=== PATIENT | female | born 1965 | race Caucasian/White ===

== ENCOUNTER → 2016-10-28 | Outpatient (CLI) | payer OTHER ==
[~2016-10-28] MED LIST: BACL10TA2 PO; DEXI30CA PO; DULO1CAP2 PO; GABA-283 PO; GEMF600T PO; HYDR-3716 PO; METF1000 PO; TOPA50TA7 PO; TOPI200T4 PO; TRAZ100T4 PO; TYLE650T25 PO; VITA200015 PO
--- NOTE | 2016-11-18 00:24 | ECWPNPC ---
PATIENT NAME: ADOLFO THORNE : 1965 GENDER: FEMALE VISIT DATE: 10/28/2016 DISCHARGE DATE: 10/28/16 1620 VISIT LOCKED DATE TIME: PHYSICIAN: SLY DAVIS RESOURCE: SLY DAVIS REASON FOR APPOINTMENT 1. LOW BACK HISTORY OF PRESENT ILLNESS HISTORY OF PRESENT ILLNESS: PAIN THE PATIENT DESCRIBES THE PAIN... THE PATIENT DESCRIBES THE PAIN... 51 YEAR OLD FEMALE PATIENT WITH HISTORY OF CHRONIC LOW BACK PAIN. PATIENT DESCRIBES THE PAIN ACHING AND THROBBING WITH A PAIN SCORE OF 4/10. PATIENT RECEIVED A SACROILIAC JOINT BLOCK ON 08/02 AND STATES THAT SHE HAD RELIEF FOR A FEW WEEKS. PATIENT IS CURRENTLY USING CYMBALTA, HYDROCODONE, AND GABAPENTIN WHICH SHE STATES HELPS WITH MOBILITY AND FUNCTIONALITY. PATIENT REPORTS THAT WALKING, STANDING, AND EVERYDAY ACTIVITIES INCREASES THE PAIN IN HER LOWER BACK. DESCRIBES PAIN BURNING PAIN ACROSS LOW BACK WITH RADIATION INTO POSTERIOR THIGHS.R>L. FALL RISK SCREENING: SCREENING :NO FALLS IN THE PAST YEAR CURRENT MEDICATIONS TAKING MULTI FOR HER TABLET ORALLY ONCE DAILY, NOTES: 07/11 TAKING PROBIOTIC CAPSULE ORALLY BID TAKING TYLENOL 650 MG TABLET 1 TABLET NEEDED ORALLY EVERY 6 HRS TAKING CYMBALTA 30 MG CAPSULE DELAYED RELEASE PARTICLES 1 CAPSULE ORALLY ONCE A DAY TAKING ZONISAMIDE 100 MG CAPSULE 1 CAP ORALLY TWICE A DAY TAKING GABAPENTIN 400 MG CAPSULE ORALLY 800MG IN AM/400MG@3P/800MG AT BEDTIME TAKING BACLOFEN 20 MG TABLET 1 TABLET WITH FOOD OR MILK ORALLY THREE TIMES A DAY NEEDED FOR SPASM AND PAIN TAKING CLARITIN 10 MG TABLET 1 TABLET ORALLY ONCE A DAY TAKING DEXILANT 30 MG CAPSULE DELAYED RELEASE 1 CAPSULE ORALLY ONCE A DAY TAKING GEMFIBROZIL 600 MG TABLET TAKE ONE TABLET BY MOUTH TWICE A DAY TAKING ENBREL 25 MG/0.5ML SOLUTION PREFILLED SYRINGE 1 ML SUBCUTANEOUS TWICE WEEKLY TAKING HYDROCODONE-ACETAMINOPHEN 5-325 MG TABLET 1 TABLET NEEDED FOR PAIN ORALLY FOR PAIN EVERY 6 HRS MDD 3 TAKING METFORMIN HCL 1000 MG TABLET 1 TABLET WITH MEALS ORALLY TWICE A DAY TAKING VITAMIN B-12 500 MCG TABLET 1 TAB ORALLY DAILY TAKING VITAMIN C 250 MG TABLET CHEWABLE 2 TAB ORALLY ONCE A DAY TAKING TRAZODONE HCL 100 MG TABLET 1 TAB(S) ORALLY DAILY AT NIGHT TAKING ZOCOR 40 MG TABLET 1 TABLET IN THE EVENING ORALLY ONCE A DAY TAKING CO Q 10 60 MG CAPSULE 1 CAPSULE WITH A MEAL ORALLY ONCE A DAY NOT-TAKING MIRALAX 17 GRAMS SUSPENSION 17 GRAMS ORALLY TWICE A DAY NEEDED, NOTES: NONE NOT-TAKING MILK OF MAGNESIA 400 MG/5ML SUSPENSION 5 ML NEEDED ORALLY PRN, NOTES: NONE NOT-TAKING SULFASALAZINE 500 MG TABLET 1 TABLET ORALLY BID NOT-TAKING PREDNISONE 5 MG TABLET 3 TABLET ORALLY ONCE A DAY NOT-TAKING CALCIUM 600+D 600-400 MG-UNIT TABLET 1 TABLET WITH FOOD ORALLY TWICE DAILY, NOTES: NONE NOT-TAKING VITAMIN D 2000 UNITS TABLET TAKE ONE TABLET BY MOUTH EVERY DAY MEDICATION LIST REVIEWED AND RECONCILED WITH THE PATIENT PAST MEDICAL HISTORY MDD SEVERE ENDOMETRIOSIS, S/P SUPRACERVICAL HYSTERECTOMY, BSO (DR. CHRIS MALIK, [facility]) LEIOMYOMA GERD -EGD/COLONOSCOPY 11/2013 DR HARDY WNL MIGRAINES (DR ARTEAGA) DM2 HTN HYPERLIPIDEMIA CHRONIC NECK/BACK PAIN - NEURO VIT D DEF MORBID OBESITY BLESSING, CPAP (NEURO) FATTY LIVER 05/24 H/O ELEVATED LFTS DIABETIC NEUROPATHY INSOMNIA RHEUMOTOID ARTHRITIS FIBROMYALGIA ALLERGIES ASPIRIN: A CHILD: ALLERGY NAPROXEN: ITCHY: ALLERGY SOCIAL HISTORY GENERAL: TOBACCO USE ARE YOU A:NONSMOKER LEARNING BARRIERS / SPECIAL NEEDS ORIENTED TO PLAN OF CARE: PATIENT, PAIN MANAGEMENT PATIENT, ORIENTED TO PLAN OF CARE: PATIENT, PAIN MANAGEMENT PATIENT. NEW PATIENT PAIN DIARY TODAY'S VISITNOTES FROM 0-10, WHAT LEVEL IS YOUR PAIN TODAY?0 PAIN CLINIC PFS, CLERGY, PUBLIC HEALTH REFERRALS PFS REFERRAL NEEDED?NO CLERGY REFERRAL NEEDED?NO PUBLIC HEALTH REFERRAL NEEDED?NO WAS THE PROVIDER NOTIFIED OF ANY PERTINENT INFO?NO PFS REFERRAL NEEDED?NO CLERGY REFERRAL NEEDED?NO PUBLIC HEALTH REFERRAL NEEDED?NO WAS THE PROVIDER NOTIFIED OF ANY PERTINENT INFO?NO REVIEW OF SYSTEMS CONSTITUTIONAL: ANY CHANGE IN YOUR MEDICAL CONDITION? NO . RECENT ILLNESS DENIES . CHILLS NO . FEVER NO . WEIGHT LOSS DENIES . INFECTION: DO YOU HAVE NEW INFECTIONS? NO . DO YOU HAVE HISTORY OF MRSA? NO . MUSCULOSKELETAL: ANY NEW PATTERNS OF PAIN OR NUMBNESS? NO . GASTROENTEROLOGY: ANY NEW CHANGE IN BOWEL CONTROL? NO . GENITOURINARY: ANY NEW CHANGE IN BLADDER CONTROL? NO . IS THERE A CHANCE YOU COULD BE ? NO . HEMATOLOGY/LYMPH: DO YOU TAKE ANY BLOOD THINNERS? (FOR EXAMPLE- COUMADIN, PLAVIX, AGGRENOX, PLATEL, PRADAXA, OR XARELTO) NO . WHEN WAS YOUR LAST DOSE? DATE: TIME: . NEUROLOGY: HAVE YOU FALLEN IN THE PAST 6 MONTHS? NO . ANY NEW EXTREMITY NUMBNESS OR WEAKNESS? YES ON OCC. HER HANDS JUST DROP. NEUROLOGIST STATES IT IS NOT NEUROLOGICAL IN NATURE . CARDIOLOGY: DO YOU HAVE A PACEMAKER OR DEFIBRILLATOR? NO . CHEST PAIN DENIES . SHORTNESS OF BREATH DENIES . RESPIRATORY: HAVE YOU BEEN SICK IN THE PAST WEEK? NO . FEVER NO . FLU LIKE SYMPTOMS? NO . COUGH NO, DENIES . SHORTNESS OF BREATH DENIES . INTEGUMENTARY: DO YOU HAVE ANY RASHES OR OPEN SORES? NO . ALLERGIC/IMMUNO: ARE YOU ALLERGIC TO SHELLFISH OR IV DYE? NO . ANY NEW ALLERGIES? NO . PSYCHIATRIC: DO YOU HAVE THOUGHTS OF HURTING YOURSELF OR SOMEONE ELSE? NO . ARE YOU ABUSED, NEGLECTED, OR IN AN UNSAFE ENVIRONMENT? NO . ENDOCRINOLOGY: ARE YOU DIABETIC? YES . OTHER: DO YOU NEED ANY PRESCRIPTIONS? NO . IF YES, PLEASE LIST: ____ . ANY NEW PROBLEMS WITH YOUR MEDICATIONS? NO . WHEN DID YOU LAST EAT? ____ . WHEN DID YOU LAST DRINK? ____ . WHAT DID YOU LAST DRINK? ____ . NAME OF PERSON DRIVING YOU HOME? ____ . DO YOU HAVE ANY OTHER QUESTIONS OR CONCERNS NO . REVIEWED BY: PROVIDER: SLY STOUT . VITAL SIGNS WT 211 LBS, HT 64 IN, BMI 36.21 INDEX, BP 144/76 MM HG, HR 97 /MIN, RR 16 /MIN, TEMP 97.9 F, OXYGEN SAT % 98, NA INITIALS AD. EXAMINATION GENERAL EXAMINATION: LUNGS:LUNG SOUNDS ARE CLEAR. HEART:HEART RATE REGULAR. MUSCULOSKELETAL:*, MUSCLE STRENGTH TESTING 5/5 BILATERAL LOWER EXTREMITIES., PALPATION: POSITIVE FOR PAIN OVER L/S SPINE. POSITIVE FOR PAIN OVER L/S PARASPINALS.TENDER OVER SIJ R>L.. MRIL/S [id number]-08-12-17 -REVIEWED. ASSESSMENTS LUMBAR DISC DISPLACEMENT WITHOUT MYELOPATHY - M51.26 (PRIMARY) SACROILIAC JOINT PAIN - M53.3 TREATMENT OTHERS CAUDAL/LUMBAR EPIDURAL NOTES: LUMBAR EPIDURAL INJECTION: YOUR PROCEDURE MATERIAL WAS PRINTED,WHAT IS LUMBAR EPIDURAL INJECTION? MATERIAL WAS PRINTED,WHAT IS LUMBAR EPIDURAL INJECTION? MATERIAL WAS PRINTED. PROCEDURE CODES FA211 ESTABILISHED PATIENT [facility] CHARGE FOLLOW UP 3 WEEKS (REASON: LESI) ELECTRONICALLY SIGNED BY ARGELIA MORELAND ON 11/16/2016 AT 03:24 PM EST DISCLAIMER : THIS IS A VISIT SUMMARY EXTRACTED FROM THE [employer] CHART. IT IS NOT A COPY OF THE [employer] PROGRESS NOTE. KEYONNA
== END ==
LOC: M PAIN 15:20
PROVIDERS: ATTEND Nurse Practitioner Family
DX: Z09 Encounter for follow-up examination after completed treatment for conditions other than malignant neoplasm (principal); G89.29 Other chronic pain; M51.26 Other intervertebral disc displacement, lumbar region; M53.3 Sacrococcygeal disorders, not elsewhere classified; F32.9 Major depressive disorder, single episode, unspecified; K21.9 Gastro-esophageal reflux disease without esophagitis; G43.909 Migraine, unspecified, not intractable, without status migrainosus; E11.40 Type 2 diabetes mellitus with diabetic neuropathy, unspecified; E78.5 Hyperlipidemia, unspecified; E55.9 Vitamin D deficiency, unspecified; E66.9 Obesity, unspecified; Z68.36 Body mass index [BMI] 36.0-36.9, adult; G47.30 Sleep apnea, unspecified; K76.0 Fatty (change of) liver, not elsewhere classified; R06.9 Unspecified abnormalities of breathing; M79.7 Fibromyalgia; Z88.8 Allergy status to other drugs, medicaments and biological substances; Z79.891 Long term (current) use of opiate analgesic; Z79.84 Long term (current) use of oral hypoglycemic drugs; Z79.899 Other long term (current) drug therapy

== ENCOUNTER → 2016-12-09 | Outpatient (CLI) | payer OTHER ==
--- NOTE | 2016-12-10 23:37 | ECWPNPC ---
PATIENT NAME: ADOLFO THORNE : 1965 GENDER: FEMALE VISIT DATE: 12/09/2016 DISCHARGE DATE: 12/09/16 1634 VISIT LOCKED DATE TIME: PHYSICIAN: SLY DAVIS RESOURCE: SLY DAVIS REASON FOR APPOINTMENT 1. POST PROC-BACK/HIP HISTORY OF PRESENT ILLNESS FALL RISK SCREENING: HERE FOR POST PROCEDURE F/U.HAD LEI 11-02-16,HAD >50% IMPROVEMENT IN PAIN FOR 3 WEEKS.CONTINUES WITH SOME BENEFIT TODAY BUT PAST 5 DAYS PAIN HAS BEEN MORE NOTICIBLE.RATING PAIN VAS 4/10.PAIN IS LOCATED LOW BACK WITH RADIATION INTO RIGHT BUTTOCKS.DESCRIBES PAIN INTERMITTENT ACHING.PAIN IS AGGREVATED BY PROLONGED SITTING. SCREENING :NO FALLS IN THE PAST YEAR CURRENT MEDICATIONS TAKING MULTI FOR HER TABLET ORALLY ONCE DAILY, NOTES: 11/02/16 08 TAKING PROBIOTIC CAPSULE ORALLY BID, NOTES: 11/02/16799 TAKING TYLENOL 650 MG TABLET 1 TABLET NEEDED ORALLY EVERY 6 HRS, NOTES: NONE LATELY TAKING CYMBALTA 30 MG CAPSULE DELAYED RELEASE PARTICLES 1 CAPSULE ORALLY ONCE A DAY, NOTES: 11/02/16799 TAKING ZONISAMIDE 100 MG CAPSULE 1 CAP ORALLY TWICE A DAY, NOTES: 11/02/16799 TAKING GABAPENTIN 400 MG CAPSULE ORALLY 800MG IN AM/400MG@3P/800MG AT BEDTIME, NOTES: 11/02/16799 TAKING BACLOFEN 20 MG TABLET 1 TABLET WITH FOOD OR MILK ORALLY THREE TIMES A DAY NEEDED FOR SPASM AND PAIN, NOTES: 11/02/16 08 TAKING ENBREL 25 MG/0.5ML SOLUTION PREFILLED SYRINGE 1 ML SUBCUTANEOUS TWICE WEEKLY, NOTES: 10/27/16 TAKING HYDROCODONE-ACETAMINOPHEN 5-325 MG TABLET 1 TABLET NEEDED FOR PAIN ORALLY FOR PAIN EVERY 6 HRS MDD 3, NOTES: NONE LATELY TAKING METFORMIN HCL 1000 MG TABLET 1 TABLET WITH MEALS ORALLY TWICE A DAY, NOTES: 11/01/162199 TAKING VITAMIN B-12 1000 MCG TABLET 1 TAB ORALLY DAILY, NOTES: 11/02/16 08 TAKING VITAMIN C 250 MG TABLET CHEWABLE 2 TAB ORALLY ONCE A DAY, NOTES: 11/01/16 TAKING TRAZODONE HCL 100 MG TABLET 1 TAB(S) ORALLY DAILY AT NIGHT, NOTES: 11/01/162199 TAKING ZOCOR 40 MG TABLET 1 TABLET IN THE EVENING ORALLY ONCE A DAY, NOTES: 11/01/16 2200 TAKING CO Q 10 60 MG CAPSULE 1 CAPSULE WITH A MEAL ORALLY ONCE A DAY, NOTES: 11/02/16 0800 TAKING VITAMIN E 400 UNIT TABLET 1 TABLET ORALLY ONCE A DAY, NOTES: 11/02/16 0800 TAKING VITAMIN D 2000 UNITS TABLET TAKE ONE TABLET BY MOUTH EVERY DAY , NOTES: 11/02/16 0800 TAKING DEXILANT 30 MG CAPSULE DELAYED RELEASE 1 CAPSULE ORALLY ONCE A DAY TAKING GEMFIBROZIL 600 MG TABLET TAKE ONE TABLET BY MOUTH TWICE A DAY TAKING MAZIN ALLERGY 180 MG TABLET 1 TABLET NEEDED ORALLY ONCE A DAY NOT-TAKING MIRALAX 17 GRAMS SUSPENSION 17 GRAMS ORALLY TWICE A DAY NEEDED, NOTES: NONE NOT-TAKING MILK OF MAGNESIA 400 MG/5ML SUSPENSION 5 ML NEEDED ORALLY PRN, NOTES: NONE NOT-TAKING SULFASALAZINE 500 MG TABLET 1 TABLET ORALLY BID NOT-TAKING PREDNISONE 5 MG TABLET 3 TABLET ORALLY ONCE A DAY NOT-TAKING CALCIUM 600+D 600-400 MG-UNIT TABLET 1 TABLET WITH FOOD ORALLY TWICE DAILY, NOTES: NONE DISCONTINUED CLARITIN 10 MG TABLET 1 TABLET ORALLY ONCE A DAY, NOTES: 11/02/16 0800 MEDICATION LIST REVIEWED AND RECONCILED WITH THE PATIENT PAST MEDICAL HISTORY MDD SEVERE ENDOMETRIOSIS, S/P SUPRACERVICAL HYSTERECTOMY, BSO (DR. CHRIS MALIK, [facility]) LEIOMYOMA GERD -EGD/COLONOSCOPY 11/2013 DR HARDY WNL MIGRAINES (DR ARTEAGA) DM2 HTN HYPERLIPIDEMIA CHRONIC NECK/BACK PAIN - NEURO VIT D DEF MORBID OBESITY BLESSING, CPAP (NEURO) FATTY LIVER 05/24 US H/O ELEVATED LFTS DIABETIC NEUROPATHY INSOMNIA RHEUMOTOID ARTHRITIS FIBROMYALGIA ALLERGIES ASPIRIN: A CHILD: ALLERGY NAPROXEN: ITCHY: ALLERGY SOCIAL HISTORY GENERAL: TOBACCO USE ARE YOU A:NONSMOKER LEARNING BARRIERS / SPECIAL NEEDS ORIENTED TO PLAN OF CARE: PATIENT, PAIN MANAGEMENT PATIENT, ORIENTED TO PLAN OF CARE: PATIENT, PAIN MANAGEMENT PATIENT. NEW PATIENT PAIN DIARY TODAY'S VISITNOTES FROM 0-10, WHAT LEVEL IS YOUR PAIN TODAY?0 PAIN CLINIC PFS, CLERGY, PUBLIC HEALTH REFERRALS PFS REFERRAL NEEDED?NO CLERGY REFERRAL NEEDED?NO PUBLIC HEALTH REFERRAL NEEDED?NO WAS THE PROVIDER NOTIFIED OF ANY PERTINENT INFO?NO PFS REFERRAL NEEDED?NO CLERGY REFERRAL NEEDED?NO PUBLIC HEALTH REFERRAL NEEDED?NO WAS THE PROVIDER NOTIFIED OF ANY PERTINENT INFO?NO REVIEW OF SYSTEMS CONSTITUTIONAL: ANY CHANGE IN YOUR MEDICAL CONDITION? NO . CHILLS NO . FEVER NO . INFECTION: DO YOU HAVE NEW INFECTIONS? NO . DO YOU HAVE HISTORY OF MRSA? NO . MUSCULOSKELETAL: ANY NEW PATTERNS OF PAIN OR NUMBNESS? NO . GASTROENTEROLOGY: ANY NEW CHANGE IN BOWEL CONTROL? NO . GENITOURINARY: ANY NEW CHANGE IN BLADDER CONTROL? NO . IS THERE A CHANCE YOU COULD BE ? NO . HEMATOLOGY/LYMPH: DO YOU TAKE ANY BLOOD THINNERS? (FOR EXAMPLE- COUMADIN, PLAVIX, AGGRENOX, PLATEL, PRADAXA, OR XARELTO) NO . WHEN WAS YOUR LAST DOSE? DATE: TIME: . NEUROLOGY: HAVE YOU FALLEN IN THE PAST 6 MONTHS? YES FELL ON VACATION UNEVEN GROUND. KNEE ABRASIONS/TWISTED BACK . ANY NEW EXTREMITY NUMBNESS OR WEAKNESS? NO . CARDIOLOGY: DO YOU HAVE A PACEMAKER OR DEFIBRILLATOR? NO . RESPIRATORY: HAVE YOU BEEN SICK IN THE PAST WEEK? NO . FEVER NO . FLU LIKE SYMPTOMS? NO . COUGH YES, NON-PRODUCTIVE . INTEGUMENTARY: DO YOU HAVE ANY RASHES OR OPEN SORES? NO . ALLERGIC/IMMUNO: ARE YOU ALLERGIC TO SHELLFISH OR IV DYE? NO . ANY NEW ALLERGIES? NO . PSYCHIATRIC: DO YOU HAVE THOUGHTS OF HURTING YOURSELF OR SOMEONE ELSE? NO . ARE YOU ABUSED, NEGLECTED, OR IN AN UNSAFE ENVIRONMENT? NO . ENDOCRINOLOGY: ARE YOU DIABETIC? YES . OTHER: DO YOU NEED ANY PRESCRIPTIONS? NO . IF YES, PLEASE LIST: ____ . ANY NEW PROBLEMS WITH YOUR MEDICATIONS? NO . WHEN DID YOU LAST EAT? ____ . WHEN DID YOU LAST DRINK? ____ . WHAT DID YOU LAST DRINK? ____ . NAME OF PERSON DRIVING YOU HOME? ____ . DO YOU HAVE ANY OTHER QUESTIONS OR CONCERNS NO . REVIEWED BY: PROVIDER: SLY STOUT . VITAL SIGNS WT 209 LBS, HT 64 IN, BMI 35.87 INDEX, BP 147/84 MM HG, HR 85 /MIN, RR 16 /MIN, TEMP 98.6 F, OXYGEN SAT % 97, NA INITIALS TL 1518, REVIEWED BY: MLF. EXAMINATION GENERAL EXAMINATION: LUNGS:LUNG SOUNDS ARE CLEAR. HEART:HEART RATE REGULAR. MUSCULOSKELETAL:*, MUSCLE STRENGTH TESTING 5/5 BILATERAL LOWER EXTREMITIES., PALPATION: POSITIVE FOR PAIN OVER L/S SPINE. POSITIVE FOR PAIN OVER L/S PARASPINALS.TENDER OVER SIJ R>L.. MRIL/S SQVWL-27-29-17 -REVIEWED. ASSESSMENTS LUMBAR DISC DISPLACEMENT WITHOUT MYELOPATHY - M51.26 (PRIMARY) SACROILIAC JOINT PAIN - M53.3 TREATMENT LUMBAR DISC DISPLACEMENT WITHOUT MYELOPATHY CAUDAL/LUMBAR EPIDURAL NOTES: OPTION FOR EPIDURAL INJECTIONS WERE DISCUSSED WITH THE PATIENT. FDA CONCERNS AND WARNING WERE REVIEWED INCLUDING THE RISK OF BLEEDING, RISK OF INFECTION, RISK OF INCREASED PAIN OR NEURALGIA, AND RISK OF PARALYSIS. PATIENT'S QUESTIONS WERE ANSWERED AND HE/SHE WISHES TO MOVE FORWARD WITH EPIDURAL INJECTION. PROCEDURE CODES FA211 ESTABILISHED PATIENT [facility] FAC[facility] CHARGE DISPOSITION & COMMUNICATION FOLLOW UP 2WK POST (REASON: LESI L4/5-L5/S1) ELECTRONICALLY SIGNED BY ARGELIA MORELAND ON 12/10/2016 AT 03:55 PM EST DISCLAIMER : THIS IS A VISIT SUMMARY EXTRACTED FROM THE [employer] CHART. IT IS NOT A COPY OF THE [employer] PROGRESS NOTE. KEYONNA
== END ==
LOC: M PAIN 15:00
PROVIDERS: ATTEND Nurse Practitioner Family
DX: Z09 Encounter for follow-up examination after completed treatment for conditions other than malignant neoplasm (principal); G89.29 Other chronic pain; M51.26 Other intervertebral disc displacement, lumbar region; M53.3 Sacrococcygeal disorders, not elsewhere classified; F32.9 Major depressive disorder, single episode, unspecified; K21.9 Gastro-esophageal reflux disease without esophagitis; G43.909 Migraine, unspecified, not intractable, without status migrainosus; E11.9 Type 2 diabetes mellitus without complications; I10 Essential (primary) hypertension; E78.5 Hyperlipidemia, unspecified; E55.9 Vitamin D deficiency, unspecified; E66.9 Obesity, unspecified; Z68.35 Body mass index [BMI] 35.0-35.9, adult; G47.30 Sleep apnea, unspecified; K76.0 Fatty (change of) liver, not elsewhere classified; M06.9 Rheumatoid arthritis, unspecified; M79.7 Fibromyalgia; Z88.6 Allergy status to analgesic agent; Z88.8 Allergy status to other drugs, medicaments and biological substances; Z79.891 Long term (current) use of opiate analgesic; Z79.84 Long term (current) use of oral hypoglycemic drugs; Z79.899 Other long term (current) drug therapy

== ENCOUNTER → 2017-02-02 | Outpatient (CLI) | payer OTHER ==
[~2017-02-02] MED LIST changes: +ISOVUE-M 300 61% 15ML VIAL (Q9967) As Ordered ONE; +LIDOCAINE 1% SDV INJ 30 ML VIAL As Ordered ONE; +diazePAM 5 MG TAB As Ordered ONE; +methylPREDNISolone SUSP 40 MG/ML (DEPO-medrol) VIAL (J1030) As Ordered ONE; +oxyCODONE 5MG TAB As Ordered ONE
--- NOTE | 2017-02-02 17:39 | REP ---
FLUOROSCOPIC GUIDED SPINAL INJECTION: The films were reviewed with Dr. Argueta. The patient has a history of chronic low back pain. The portable C-Arm was provided in the OR for Dr. Galindo for fluoroscopic guidance. Three intraoperative fluoroscopic spot films were obtained for needle placement verification for lumbar epidural injection. The films are on the PACs system and are available for review. 7 seconds of fluoroscopy time utilized for this procedure. Reviewed by BEHZAD Farrar 02/03/2017 04:57 PEdited and Signed by Brenann Argueta MD 02/03/2017 05:01 P
--- NOTE | 2017-02-07 00:01 | ECWPNPC ---
PATIENT NAME: ADOLFO THORNE : 1965 GENDER: FEMALE VISIT DATE: 02/02/2017 DISCHARGE DATE: 02/02/17 1238 VISIT LOCKED DATE TIME: PHYSICIAN: ANTONINO LEE RESOURCE: ANTONINO LEE REASON FOR APPOINTMENT 1. LESB HISTORY OF PRESENT ILLNESS HISTORY OF PRESENT ILLNESS: PAIN THE PATIENT DESCRIBES THE PAIN... FALL RISK SCREENING: SCREENING :NO FALLS IN THE PAST YEAR CURRENT MEDICATIONS TAKING MULTI FOR HER TABLET ORALLY ONCE DAILY, NOTES: 01-18-17599 TAKING PROBIOTIC CAPSULE ORALLY BID, NOTES: 01-18-17599 TAKING TYLENOL 650 MG TABLET 1 TABLET NEEDED ORALLY EVERY 6 HRS, NOTES: 01-18-17599 TAKING CYMBALTA 30 MG CAPSULE DELAYED RELEASE PARTICLES 1 CAPSULE ORALLY ONCE A DAY, NOTES: 02-02-17799 TAKING ZONISAMIDE 100 MG CAPSULE 1 CAP ORALLY TWICE A DAY, NOTES: 02-02-17799 TAKING GABAPENTIN 400 MG CAPSULE ORALLY 800MG IN AM/400MG@3P/800MG AT BEDTIME, NOTES: 02-02-17799 TAKING BACLOFEN 20 MG TABLET 1 TABLET WITH FOOD OR MILK ORALLY THREE TIMES A DAY NEEDED FOR SPASM AND PAIN, NOTES: 02-02-17799 TAKING ENBREL 25 MG/0.5ML SOLUTION PREFILLED SYRINGE 1 ML SUBCUTANEOUS TWICE WEEKLY, NOTES: 01-24-17 TAKING HYDROCODONE-ACETAMINOPHEN 5-325 MG TABLET 1 TABLET NEEDED FOR PAIN ORALLY FOR PAIN EVERY 6 HRS MDD 3, NOTES: 01-18-17599 TAKING VITAMIN B-12 1000 MCG TABLET 1 TAB ORALLY DAILY, NOTES: 02-02-17799 TAKING VITAMIN C 250 MG TABLET CHEWABLE 2 TAB ORALLY ONCE A DAY, NOTES: 01-18-17599 TAKING TRAZODONE HCL 100 MG TABLET 1 TAB(S) ORALLY DAILY AT NIGHT, NOTES: 02-01-172229 TAKING ZOCOR 40 MG TABLET 1 TABLET IN THE EVENING ORALLY ONCE A DAY, NOTES: 2229 TAKING CO Q 10 60 MG CAPSULE 1 CAPSULE WITH A MEAL ORALLY ONCE A DAY, NOTES: 02-02-17799 TAKING VITAMIN E 400 UNIT TABLET 1 TABLET ORALLY ONCE A DAY, NOTES: 02-02-17799 TAKING VITAMIN D 2000 UNITS TABLET TAKE ONE TABLET BY MOUTH EVERY DAY , NOTES: 02-02-17799 TAKING DEXILANT 30 MG CAPSULE DELAYED RELEASE 1 CAPSULE ORALLY ONCE A DAY, NOTES: 02-02-17799 TAKING GEMFIBROZIL 600 MG TABLET TAKE ONE TABLET BY MOUTH TWICE A DAY , NOTES: 02-02-17799 TAKING MAZIN ALLERGY 180 MG TABLET 1 TABLET NEEDED ORALLY ONCE A DAY, NOTES: 02-02-17799 TAKING METFORMIN HCL 1000 MG TABLET 1 TABLET WITH MEALS ORALLY TWICE A DAY, NOTES: 02-01-172099 NOT-TAKING MIRALAX 17 GRAMS SUSPENSION 17 GRAMS ORALLY TWICE A DAY NEEDED, NOTES: NONE NOT-TAKING MILK OF MAGNESIA 400 MG/5ML SUSPENSION 5 ML NEEDED ORALLY PRN, NOTES: NONE NOT-TAKING SULFASALAZINE 500 MG TABLET 1 TABLET ORALLY BID NOT-TAKING PREDNISONE 5 MG TABLET 3 TABLET ORALLY ONCE A DAY NOT-TAKING CALCIUM 600+D 600-400 MG-UNIT TABLET 1 TABLET WITH FOOD ORALLY TWICE DAILY, NOTES: NONE MEDICATION LIST REVIEWED AND RECONCILED WITH THE PATIENT PAST MEDICAL HISTORY MDD SEVERE ENDOMETRIOSIS, S/P SUPRACERVICAL HYSTERECTOMY, BSO (DR. CHRIS MALIK, [facility]) LEIOMYOMA GERD -EGD/COLONOSCOPY 11/2013 DR HARDY WNL MIGRAINES (DR ARTEAGA) DM2 HTN HYPERLIPIDEMIA CHRONIC NECK/BACK PAIN - NEURO VIT D DEF MORBID OBESITY BLESSING, CPAP (NEURO) FATTY LIVER 05/24 H/O ELEVATED LFTS DIABETIC NEUROPATHY INSOMNIA RHEUMOTOID ARTHRITIS FIBROMYALGIA ALLERGIES ASPIRIN: A CHILD: ALLERGY NAPROXEN: ITCHY: ALLERGY SOCIAL HISTORY GENERAL: PAIN CLINIC PFS, CLERGY, PUBLIC HEALTH REFERRALS CLERGY REFERRAL NEEDED?NO WAS THE PROVIDER NOTIFIED OF ANY PERTINENT INFO?NO PFS REFERRAL NEEDED?NO PUBLIC HEALTH REFERRAL NEEDED?NO PATIENT: ____. REVIEW OF SYSTEMS CONSTITUTIONAL: ANY CHANGE IN YOUR MEDICAL CONDITION? NO . CHILLS NO . FEVER NO . INFECTION: DO YOU HAVE NEW INFECTIONS? NO . DO YOU HAVE HISTORY OF MRSA? NO . MUSCULOSKELETAL: ANY NEW PATTERNS OF PAIN OR NUMBNESS? NO . GASTROENTEROLOGY: ANY NEW CHANGE IN BOWEL CONTROL? NO . GENITOURINARY: ANY NEW CHANGE IN BLADDER CONTROL? NO . IS THERE A CHANCE YOU COULD BE ? NO . HEMATOLOGY/LYMPH: DO YOU TAKE ANY BLOOD THINNERS? (FOR EXAMPLE- COUMADIN, PLAVIX, AGGRENOX, PLATEL, PRADAXA, OR XARELTO) NO . WHEN WAS YOUR LAST DOSE? DATE: TIME: . NEUROLOGY: HAVE YOU FALLEN IN THE PAST 6 MONTHS? NO . ANY NEW EXTREMITY NUMBNESS OR WEAKNESS? NO . CARDIOLOGY: DO YOU HAVE A PACEMAKER OR DEFIBRILLATOR? NO . RESPIRATORY: HAVE YOU BEEN SICK IN THE PAST WEEK? NO . FEVER NO . FLU LIKE SYMPTOMS? NO . COUGH NO . INTEGUMENTARY: DO YOU HAVE ANY RASHES OR OPEN SORES? NO . ALLERGIC/IMMUNO: ARE YOU ALLERGIC TO SHELLFISH OR IV DYE? NO . ANY NEW ALLERGIES? NO . PSYCHIATRIC: DO YOU HAVE THOUGHTS OF HURTING YOURSELF OR SOMEONE ELSE? NO . ARE YOU ABUSED, NEGLECTED, OR IN AN UNSAFE ENVIRONMENT? NO . ENDOCRINOLOGY: ARE YOU DIABETIC? NO . OTHER: DO YOU NEED ANY PRESCRIPTIONS? NO . IF YES, PLEASE LIST: ____ . ANY NEW PROBLEMS WITH YOUR MEDICATIONS? NO . WHEN DID YOU LAST EAT? ____02-01 17 . WHEN DID YOU LAST DRINK? ____02-02-17 0800 . WHAT DID YOU LAST DRINK? ____A LITTLE WATER WITH MEDS . NAME OF PERSON DRIVING YOU HOME? ____TACO MONTENEGRO . DO YOU HAVE ANY OTHER QUESTIONS OR CONCERNS NO . REVIEWED BY: PROVIDER: . VITAL SIGNS WT 208 LBS, HT 64 IN, BMI 35.70 INDEX, BP 131/58 MM HG, HR 81 /MIN, RR 16 /MIN, TEMP 98.4 F, OXYGEN SAT % 97%, NA INITIALS SC 09:23, REVIEWED BY: KG. ASSESSMENTS INTERVERTEBRAL DISC DISORDERS WITH RADICULOPATHY, LUMBAR REGION - M51.16 (PRIMARY) PROCEDURES PRE PROCEDURE DIAGNOSIS LUMBAR DISC DISORDER WITH RADICULOPATHY POST PROCEDURE DIAGNOSIS LUMBAR DISC DISORDER WITH RADICULOPATHY PROCEDURE LUMBAR EPIDURAL STEROID INJECTION UNDER FLUOROSCOPIC GUIDANCE SURGEON DR. ANTONINO LEE STAMP PRESSER NONE ANESTHESIA LOCAL PRE PROCEDURE NOTE THE PATIENT HAS A HISTORY OF CHRONIC LOW BACK PAIN. I EVALUATE THE PATIENT AND REVIEWED THE CHART. I WENT OVER THE RISKS, ALTERNATIVES, AND BENEFITS ASSOCIATED WITH THIS PROCEDURE. THE PATIENT WOULD LIKE TO PROCEED AND GIVE CONSENT TO PERFORMED THE PROCEDURE. THE PATIENT DENIES UNEXPLAINABLE WEIGHT LOSS, FEVER, CHILLS, OR NEW CHANGES IN URINARY OR BOWEL CONTROL DESCRIPTION OF PROCEDURE THE PATIENT WAS BROUGHT TO THE PROCEDURE ROOM AND PLACED IN THE PRONE POSITION. THE LUMBOSACRAL AREA WAS CLEANED WITH BETADINE SOLUTION AND DRAPED ASEPTICALLY. THE PROCEDURE WAS DONE UNDER STERILE CONDITIONS. I CHECKED LATERALITY AND THE LEVEL WHERE THE PROCEDURE WAS GOING TO BE PERFORMED WITH THE PATIENT AND THE SUPPORTING STAFF AT THE MOMENT OF THE TIME OUT IN THE PROCEDURE ROOM. UNDER FLUOROSCOPIC GUIDANCE, THE TARGET POINT WAS SELECTED AT THE INTERLAMINAR LEVEL OF L4-L5. LIDOCAINE WAS USED TO NUMB THE SKIN AND THE SUBCUTANEOUS TISSUE BELOW IT. EPIDURAL TUOHY NEEDLE, 17-GAUGE, WAS ADVANCED UNDER FLUOROSCOPIC GUIDANCE AND FOLLOWING PATIENT FEEDBACK UNTIL THE EPIDURAL SPACE WAS REACHED, 7 CM DEEP INTO THE SKIN BY THE LOSS OF RESISTANCE TECHNIQUE. ISOVUE M DYE 30%, 0.25 ML, WAS INJECTED SHOWING ADEQUATE SPREAD OF THE DYE. THEN, A SOLUTION OF 3 ML OF NORMAL SALINE WITH DEPO-MEDROL 60 MG WAS INJECTED SLOWLY FOLLOWING PATIENT FEEDBACK. THERE WAS NO EVIDENCE OF BLOOD, PARESTHESIA OR CEREBROSPINAL FLUID DURING THE PROCEDURE. THE PATIENT WAS SENT TO THE RECOVERY ROOM. THE PATIENT WAS MOVING THE EXTREMITIES AND DOING WELL. THERE WAS NO COMPLICATION DURING THE PROCEDURE. FLUOROSCOPY TIME WAS 7 SECONDS POST PROCEDURE NOTE THE PATIENT WILL BE SEEN IN A FOLLOW UP IN THE NEXT FEW WEEKS. INSTRUCTIONS WERE GIVEN, QUESTIONS WERE ANSWERED, AND THE PATIENT EXPRESSED UNDERSTANDING AND AGREES WITH THE PLAN. INSTRUCTIONS WERE GIVEN, QUESTIONS WERE ANSWERED, PATIENT REPORTS UNDERSTANDING AND AGREES WITH THE PLAN. I, ISHA LORA, DOCUMENTED THE ABOVE INFORMATION ACTING A SCRIBE FOR DR. LEE. I HAVE REVIEWED THE ABOVE DOCUMENT, WRITTEN BY ISHA LEWIS AND I VERIFY THAT IT IS ACCURATE DIAGNOSTIC IMAGING [facility] FLUORO GUIDE SPINE INJECTION (PAIN)[id number] PROCEDURE CODES 94000 LUMBAR/SACRAL W/ IMAGING 6045F RADXPS IN END [id number] PXD DISPOSITION & COMMUNICATION FOLLOW UP 3 WEEKS ELECTRONICALLY SIGNED BY ANTONINO LEE MD ON 02/06/2017 AT 12:28 PM EDT DISCLAIMER : THIS IS A VISIT SUMMARY EXTRACTED FROM THE [employer] CHART. IT IS NOT A COPY OF THE [employer] PROGRESS NOTE. MTDD
== END | disposition home or self-care (01) ==
LOC: M PAIN 09:00
PROVIDERS: ATTEND Anesthesiology
DX: G89.29 Other chronic pain (principal); M51.16 Intervertebral disc disorders with radiculopathy, lumbar region; I10 Essential (primary) hypertension; E11.40 Type 2 diabetes mellitus with diabetic neuropathy, unspecified; E78.5 Hyperlipidemia, unspecified; E55.9 Vitamin D deficiency, unspecified; K21.9 Gastro-esophageal reflux disease without esophagitis; G43.909 Migraine, unspecified, not intractable, without status migrainosus; N80.9 Endometriosis, unspecified; G47.00 Insomnia, unspecified; M06.9 Rheumatoid arthritis, unspecified; M79.7 Fibromyalgia; E66.8 Other obesity; D25.9 Leiomyoma of uterus, unspecified; Z79.899 Other long term (current) drug therapy; Z79.84 Long term (current) use of oral hypoglycemic drugs; Z88.5 Allergy status to narcotic agent; Z88.8 Allergy status to other drugs, medicaments and biological substances
CPT/HCPCS: 62323; J1030; Q9967

== ENCOUNTER → 2017-02-10 | Outpatient (REF) | payer OTHER ==
[~2017-02-10] MED LIST changes: -ISOVUE-M 300 61% 15ML VIAL (Q9967) As Ordered ONE; -LIDOCAINE 1% SDV INJ 30 ML VIAL As Ordered ONE; -diazePAM 5 MG TAB As Ordered ONE; -methylPREDNISolone SUSP 40 MG/ML (DEPO-medrol) VIAL (J1030) As Ordered ONE; -oxyCODONE 5MG TAB As Ordered ONE
== END ==
LOC: M SFHCADAM 14:18
PROVIDERS: ATTEND Physician Assistant Medical
DX: E11.9 Type 2 diabetes mellitus without complications (principal)

== ENCOUNTER → 2017-03-09 | Outpatient (CLI) | payer OTHER ==
--- NOTE | 2017-03-30 00:52 | ECWPNPC ---
PATIENT NAME: ADOLFO THORNE : 1965 GENDER: FEMALE VISIT DATE: 03/09/2017 DISCHARGE DATE: 03/09/17 1502 VISIT LOCKED DATE TIME: PHYSICIAN: SLY DAVIS RESOURCE: LSY DAVIS REASON FOR APPOINTMENT 1. BACK HISTORY OF PRESENT ILLNESS HISTORY OF PRESENT ILLNESS: PAIN THE PATIENT DESCRIBES THE PAIN... FALL RISK SCREENING: HERE FOR POST PROCEDURE F/U.HAD LESI 02-02,HAD >50% IMPROVEMENT IN PAIN FOR 3 WEEKS.CONTINUES WITH SOME BENEFIT TODAY BUT PAST 5 DAYS PAIN HAS BEEN MORE NOTICIBLE ECSPECIALLY IN HIPS.RATING PAIN VAS 4/10.PAIN IS LOCATED LOW BACK WITH RADIATION INTO RIGHT BUTTOCKS.DESCRIBES PAIN INTERMITTENT ACHING.PAIN IS AGGREVATED BY PROLONGED SITTING. SCREENING :NO FALLS IN THE PAST YEAR :NO FALLS IN THE PAST YEAR CURRENT MEDICATIONS TAKING MULTI FOR HER TABLET ORALLY ONCE DAILY, NOTES: 01-18-17599 TAKING TYLENOL 650 MG TABLET 1 TABLET NEEDED ORALLY EVERY 6 HRS, NOTES: 01-18-17599 TAKING CYMBALTA 30 MG CAPSULE DELAYED RELEASE PARTICLES 1 CAPSULE ORALLY ONCE A DAY, NOTES: 02-02-17799 TAKING ZONISAMIDE 100 MG CAPSULE 1 CAP ORALLY TWICE A DAY, NOTES: 02-02-17799 TAKING GABAPENTIN 400 MG CAPSULE ORALLY 800MG IN AM/400MG@3P/800MG AT BEDTIME, NOTES: 02-02-17799 TAKING BACLOFEN 20 MG TABLET 1 TABLET WITH FOOD OR MILK ORALLY THREE TIMES A DAY NEEDED FOR SPASM AND PAIN, NOTES: 02-02-17799 TAKING ENBREL 25 MG/0.5ML SOLUTION PREFILLED SYRINGE 1 ML SUBCUTANEOUS TWICE WEEKLY, NOTES: 01-24-17 TAKING HYDROCODONE-ACETAMINOPHEN 5-325 MG TABLET 1 TABLET NEEDED FOR PAIN ORALLY FOR PAIN EVERY 6 HRS MDD 3, NOTES: 01-18-17599 TAKING VITAMIN B-12 1000 MCG TABLET 1 TAB ORALLY DAILY, NOTES: 02-02-17799 TAKING VITAMIN C 250 MG TABLET CHEWABLE 2 TAB ORALLY ONCE A DAY, NOTES: 01-18-17599 TAKING TRAZODONE HCL 100 MG TABLET 1 TAB(S) ORALLY DAILY AT NIGHT, NOTES: 02-01-172229 TAKING ZOCOR 40 MG TABLET 1 TABLET IN THE EVENING ORALLY ONCE A DAY, NOTES: 2229 TAKING CO Q 10 60 MG CAPSULE 1 CAPSULE WITH A MEAL ORALLY ONCE A DAY, NOTES: 02-02-17799 TAKING VITAMIN E 400 UNIT TABLET 1 TABLET ORALLY ONCE A DAY, NOTES: 02-02-17799 TAKING VITAMIN D 2000 UNITS TABLET TAKE ONE TABLET BY MOUTH EVERY DAY , NOTES: 02-02-17799 TAKING GEMFIBROZIL 600 MG TABLET TAKE ONE TABLET BY MOUTH TWICE A DAY , NOTES: 02-02-17799 TAKING METFORMIN HCL 1000 MG TABLET 1 TABLET WITH MEALS ORALLY TWICE A DAY, NOTES: 02-01-172099 TAKING NEXIUM 40 MG CAPSULE DELAYED RELEASE 1 CAPS, AUDRA ORALLY TWICE DAILY TAKING CETIRIZINE HCL 10 MG TABLET 1 TABLET ORALLY ONCE A DAY TAKING FLUTICASONE PROPIONATE 50 MCG/ACT SUSPENSION 1 SPRAY IN EACH NOSTRIL NASALLY TWICE DAILY TAKING SINGULAIR 10 MG TABLET 1 TABLET IN THE EVENING ORALLY ONCE A DAY NOT-TAKING PROBIOTIC CAPSULE ORALLY BID, NOTES: 01-18-17599 NOT-TAKING AUGMENTIN 500-125 MG TABLET 1 TABLET ORALLY THREE TIMES DAILY NOT-TAKING CALCIUM 600+D 600-400 MG-UNIT TABLET 1 TABLET WITH FOOD ORALLY TWICE DAILY, NOTES: NONE MEDICATION LIST REVIEWED AND RECONCILED WITH THE PATIENT PAST MEDICAL HISTORY MDD SEVERE ENDOMETRIOSIS, S/P SUPRACERVICAL HYSTERECTOMY, BSO (DR. CHRIS MALIK, [facility]) LEIOMYOMA GERD -EGD/COLONOSCOPY 11/2013 DR HARDY WNL MIGRAINES (DR ARTEAGA) DM2 HTN HYPERLIPIDEMIA CHRONIC NECK/BACK PAIN - NEURO VIT D DEF MORBID OBESITY BLESSING, CPAP (NEURO) FATTY LIVER 05/24 H/O ELEVATED LFTS DIABETIC NEUROPATHY INSOMNIA RHEUMOTOID ARTHRITIS FIBROMYALGIA ALLERGIES ASPIRIN: A CHILD: ALLERGY NAPROXEN: ITCHY: ALLERGY SURGICAL HISTORY C SECTION X 3 HYSTERECTOMY CHOLECYSTECTOMY APPENDECTOMY HOSPITALIZATION/MAJOR DIAGNOSTIC PROCEDURE SURGERIES REVIEW OF SYSTEMS CONSTITUTIONAL: ANY CHANGE IN YOUR MEDICAL CONDITION? NO . CHILLS NO . FEVER NO . INFECTION: DO YOU HAVE NEW INFECTIONS? YES, URI TX'D W ABX&NBSP;. DO YOU HAVE HISTORY OF MRSA? &NBSP;&NBSP; NO&NBSP;. MUSCULOSKELETAL: ANY NEW PATTERNS OF PAIN OR NUMBNESS? YES, PT STATES SHE HAD LESB ON , PRE PROCEDURAL, PT STATES PAIN WAS 5/10, POST PROCEDURE PAIN WAS 4/10, . GASTROENTEROLOGY: ANY NEW CHANGE IN BOWEL CONTROL? NO . GENITOURINARY: ANY NEW CHANGE IN BLADDER CONTROL? NO . IS THERE A CHANCE YOU COULD BE ? NO . HEMATOLOGY/LYMPH: DO YOU TAKE ANY BLOOD THINNERS? (FOR EXAMPLE- COUMADIN, PLAVIX, AGGRENOX, PLATEL, PRADAXA, OR XARELTO) NO . WHEN WAS YOUR LAST DOSE? DATE: TIME: . NEUROLOGY: HAVE YOU FALLEN IN THE PAST 6 MONTHS? YES, PT STATES SHE FELL DOWN 2 STEPS, FALLING ON CARPET FLOOR. PT STATES LEFT FOOT AFFECTED WITH BRUISING TO DIGITS. PT STATES SHE DID NOT SEEK MEDICAL ATTENTION . ANY NEW EXTREMITY NUMBNESS OR WEAKNESS? NO . CARDIOLOGY: DO YOU HAVE A PACEMAKER OR DEFIBRILLATOR? NO . RESPIRATORY: HAVE YOU BEEN SICK IN THE PAST WEEK? NO . FEVER NO . FLU LIKE SYMPTOMS? NO . COUGH NO . INTEGUMENTARY: DO YOU HAVE ANY RASHES OR OPEN SORES? NO . ALLERGIC/IMMUNO: ARE YOU ALLERGIC TO SHELLFISH OR IV DYE? NO . ANY NEW ALLERGIES? NO . PSYCHIATRIC: DO YOU HAVE THOUGHTS OF HURTING YOURSELF OR SOMEONE ELSE? NO . ARE YOU ABUSED, NEGLECTED, OR IN AN UNSAFE ENVIRONMENT? NO . ENDOCRINOLOGY: ARE YOU DIABETIC? YES . OTHER: DO YOU NEED ANY PRESCRIPTIONS? NO, PT TO DISC USS WITH Cabrera DAVIS . IF YES, PLEASE LIST: ____ . ANY NEW PROBLEMS WITH YOUR MEDICATIONS? NO . WHEN DID YOU LAST EAT? ____ . WHEN DID YOU LAST DRINK? ____ . WHAT DID YOU LAST DRINK? ____ . NAME OF PERSON DRIVING YOU HOME? ____ . DO YOU HAVE ANY OTHER QUESTIONS OR CONCERNS NO . REVIEWED BY: PROVIDER: SLY STOUT . VITAL SIGNS WT 207.0 LBS, HT 64 IN, BMI 35.53 INDEX, BP 128/66 MM HG, HR 91 /MIN, RR 16 /MIN, TEMP 98.8 F, OXYGEN SAT % 98%, SAFE IN ENV? (Y/N) Y, NA INITIALS TL 1347, REVIEWED BY: EM. EXAMINATION GENERAL EXAMINATION: LUNGS:LUNG SOUNDS ARE CLEAR. HEART:HEART RATE REGULAR. MUSCULOSKELETAL:TRIGGER POINTS: NOTED OVER R>L PARASPINAL REGION.. MRIL/S [id number] -REVIEWED. ASSESSMENTS LUMBAR DISC DISPLACEMENT WITHOUT MYELOPATHY - M51.26 (PRIMARY) SACROILIAC JOINT PAIN - M53.3 MYALGIA - M79.1 TREATMENT LUMBAR DISC DISPLACEMENT WITHOUT MYELOPATHY NOTES: REQUEST BILATERAL LUMBAR TPI R>LSTOP ENBREL -DO NOT TAKE TUESDAY AND TUESDAY DOSE AND SCHEDULE PROCEDURE ON A TUESDAY. RESUME ENBREL FOLLOWING TUESDAY. PROCEDURE CODES FA211 ESTABILISHED PATIENT [facility] CHARGE DISPOSITION & COMMUNICATION FOLLOW UP SCHEDULE AFTER HER VACATION IN [place] (REASON: REQUEST BILATERAL LUMBAR TPI R>L) ELECTRONICALLY SIGNED BY ARGELIA MORELAND ON 03/29/2017 AT 02:24 PM EDT DISCLAIMER : THIS IS A VISIT SUMMARY EXTRACTED FROM THE [employer] CHART. IT IS NOT A COPY OF THE [employer] PROGRESS NOTE. KEYONNA
== END | disposition home or self-care (01) ==
LOC: M PAIN 13:40
PROVIDERS: ATTEND Nurse Practitioner Family
DX: G89.29 Other chronic pain (principal); M51.26 Other intervertebral disc displacement, lumbar region; M53.3 Sacrococcygeal disorders, not elsewhere classified; M79.1 Myalgia; N80.9 Endometriosis, unspecified; K21.9 Gastro-esophageal reflux disease without esophagitis; E11.9 Type 2 diabetes mellitus without complications; I10 Essential (primary) hypertension; E78.5 Hyperlipidemia, unspecified; E55.9 Vitamin D deficiency, unspecified; G47.33 Obstructive sleep apnea (adult) (pediatric); M06.9 Rheumatoid arthritis, unspecified; F33.9 Major depressive disorder, recurrent, unspecified; Z79.899 Other long term (current) drug therapy; Z79.84 Long term (current) use of oral hypoglycemic drugs; Z88.8 Allergy status to other drugs, medicaments and biological substances

== ENCOUNTER → 2017-03-17 | Outpatient (REF) | payer OTHER ==
[2017-03-17 13:00] LABS: BASO % 0.4 % (0.0-1.0); EOS # 0.2 K/mm3 (0.0-0.50); LARGE UNSTAINED CELL # 0.1 K/mm3 (0.0-0.4); LARGE UNSTAINED CELL % 2.1 % (0.0-4.0); LYMPH # 2.8 K/mm3 (1.5-4.5); LYMPH % 40.8 % (24.0-44.0); MEAN CORPUSCULAR HEMOGLOBIN 27.4 pg (27.0-33.0); MEAN CORPUSCULAR HGB CONC 32.7 g/dl (32.0-36.5); MEAN CORPUSCULAR VOLUME 83.9 fl (80.0-96.0); MONO # 0.4 K/mm3 (0.0-0.8); MONO % 5.7 % (0.0-5.0); NEUTROPHILS # 3.1 K/mm3 (1.8-7.7); PLATELET COUNT, AUTOMATED 294 k/mm3 (150-450); RED CELL DISTRIBUTION WIDTH 14.3 % (11.5-14.5); WHITE BLOOD COUNT 6.5 K/mm3 (4.0-10.0)
[2017-03-17 13:17] LABS: BLOOD UREA NITROGEN 10 MG/DL (7-18); CREATININE FOR GFR 0.73 MG/DL (0.55-1.02); GLOMERULAR FILTRATION RATE > 60.0 (>51); GLUCOSE, FASTING 106 MG/DL (70-105)
[2017-03-17 13:18] LABS: ALT/SGPT 40 U/L (12-78); ANION GAP 4 MEQ/L (8-16); AST/SGOT 28 U/L (15-37); CALCIUM LEVEL 9.5 MG/DL (8.5-10.1); CARBON DIOXIDE LEVEL 30 MEQ/L (21-32); CHLORIDE LEVEL 108 MEQ/L (98-107); POTASSIUM SERUM 4.3 MEQ/L (3.5-5.1); SODIUM LEVEL 142 MEQ/L (136-145)
[2017-03-17 13:19] LABS: ALBUMIN 4.2 GM/DL (3.2-5.2); ALBUMIN/GLOBULIN RATIO 1.27 (1.00-1.93); ALKALINE PHOSPHATASE 88 U/L (45-117); BILIRUBIN,TOTAL 0.3 MG/DL (0.2-1.0); PERCENT SATURATION 12.4 % (13.2-37.4); TOTAL IRON BINDING CAPACITY 510 UG/DL (250-450); TOTAL PROTEIN 7.5 GM/DL (6.4-8.2)
[2017-03-17 13:36] LABS: FERRITIN 12 NG/ML (8-252)
== END ==
LOC: M SFHCADAM 08:08
PROVIDERS: ATTEND Physician Assistant Medical
DX: E11.9 Type 2 diabetes mellitus without complications (principal); K21.9 Gastro-esophageal reflux disease without esophagitis; K75.81 Nonalcoholic steatohepatitis (NASH); D50.8 Other iron deficiency anemias; E55.9 Vitamin D deficiency, unspecified

== ENCOUNTER → 2017-04-01 | Outpatient (CLI) | payer OTHER ==
[~2017-04-01] MED LIST changes: +BUPIVACAINE HCL 0.25% 10 ML VIAL As Ordered ONE; +BUPIVACAINE HCL 0.25% 30 ML VIAL As Ordered ONE; -DEXI30CA PO; +DEXI30CA2 PO; -METF1000 PO; +METF10004 PO; -TOPA50TA7 PO; +TOPA50TA8 PO; -TOPI200T4 PO; +TOPI200T7 PO; +TRAZ-136 PO; -TRAZ100T4 PO; +TRIAMCINOLONE ACETONIDE SUSP 40 MG/ML VIAL (J3301) As Ordered ONE; +diazePAM 5 MG TAB As Ordered ONE; +oxyCODONE 5MG TAB As Ordered ONE
--- NOTE | 2017-04-12 23:36 | ECWPNPC ---
PATIENT NAME: ADOLFO THORNE : 1965 GENDER: FEMALE VISIT DATE: 04/01/2017 DISCHARGE DATE: 04/01/171655 VISIT LOCKED DATE TIME: PHYSICIAN: ANTONINO LEE RESOURCE: ANTONINO LEE REASON FOR APPOINTMENT 1. CARLOS MANUEL LUMBAR TPI HISTORY OF PRESENT ILLNESS HISTORY OF PRESENT ILLNESS: PAIN THE PATIENT DESCRIBES THE PAIN... FALL RISK SCREENING: SCREENING :NO FALLS IN THE PAST YEAR CURRENT MEDICATIONS TAKING TYLENOL 650 MG TABLET 1 TABLET NEEDED ORALLY EVERY 6 HRS, NOTES: LONG TIME AGO TAKING CYMBALTA 30 MG CAPSULE DELAYED RELEASE PARTICLES 1 CAPSULE ORALLY ONCE A DAY, NOTES: 04/01/17799 TAKING ZONISAMIDE 100 MG CAPSULE 1 CAP ORALLY TWICE A DAY, NOTES: 04/01/17799 TAKING GABAPENTIN 400 MG CAPSULE ORALLY 800MG IN AM/400MG@3P/800MG AT BEDTIME, NOTES: 04/01/17799 TAKING BACLOFEN 20 MG TABLET 1 TABLET WITH FOOD OR MILK ORALLY THREE TIMES A DAY NEEDED FOR SPASM AND PAIN, NOTES: 04/01/17799 TAKING ENBREL 25 MG/0.5ML SOLUTION PREFILLED SYRINGE 1 ML SUBCUTANEOUS TWICE WEEKLY, NOTES: 03/20/17 08 TAKING HYDROCODONE-ACETAMINOPHEN 5-325 MG TABLET 1 TABLET NEEDED FOR PAIN ORALLY FOR PAIN EVERY 6 HRS MDD 3, NOTES: 03/23/17 1400 TAKING VITAMIN B-12 1000 MCG TABLET 1 TAB ORALLY DAILY, NOTES: 04/01/17799 TAKING VITAMIN C 250 MG TABLET CHEWABLE 2 TAB ORALLY ONCE A DAY, NOTES: 03/14/17 08 TAKING TRAZODONE HCL 100 MG TABLET 1 TAB(S) ORALLY DAILY AT NIGHT, NOTES: 03/31/17 2300 TAKING ZOCOR 40 MG TABLET 1 TABLET IN THE EVENING ORALLY ONCE A DAY, NOTES: 03/31/17 2300 TAKING CO Q 10 60 MG CAPSULE 1 CAPSULE WITH A MEAL ORALLY ONCE A DAY, NOTES: 04/01/17799 TAKING VITAMIN E 400 UNIT TABLET 1 TABLET ORALLY ONCE A DAY, NOTES: 04/01/17799 TAKING VITAMIN D 2000 UNITS TABLET TAKE ONE TABLET BY MOUTH EVERY DAY , NOTES: 04/01/17799 TAKING GEMFIBROZIL 600 MG TABLET TAKE ONE TABLET BY MOUTH TWICE A DAY , NOTES: 6/22/17 0800 TAKING METFORMIN HCL 1000 MG TABLET 1 TABLET WITH MEALS ORALLY TWICE A DAY, NOTES: 04/01/17 1800 TAKING NEXIUM 40 MG CAPSULE DELAYED RELEASE 1 CAPS, AUDRA ORALLY TWICE DAILY, NOTES: 03/31/17 2300 TAKING CETIRIZINE HCL 10 MG TABLET 1 TABLET ORALLY ONCE A DAY, NOTES: 03/31/17 230 TAKING FLUTICASONE PROPIONATE 50 MCG/ACT SUSPENSION 1 SPRAY IN EACH NOSTRIL NASALLY TWICE DAILY, NOTES: 03/31/172199 TAKING SINGULAIR 10 MG TABLET 1 TABLET IN THE EVENING ORALLY ONCE A DAY, NOTES: 04/01/17 08 TAKING FERROUS SULFATE 325 (65 FE) MG TABLET DELAYED RELEASE 1 TABLET ORALLY ONCE A DAY, NOTES: 04/01/17 08 TAKING ONE TOUCH ULTRA BLUE STRIPS DIRECTED SUBCUTANEOUSLY DAILY, DX E11.9 TAKING BIOTIN 5000 MCG CAPSULE 1 CAPSULE ORALLY ONCE A DAY, NOTES: 04/01/17 08 TAKING HYDROXYCHLOROQUINE SULFATE 200 MG TABLET 1 TABLET WITH FOOD OR MILK ORALLY BID, NOTES: 03/31/172199 NOT-TAKING MULTI FOR HER TABLET ORALLY ONCE DAILY NOT-TAKING PROBIOTIC CAPSULE ORALLY BID, NOTES: 01-18-17 06 NOT-TAKING AUGMENTIN 500-125 MG TABLET 1 TABLET ORALLY THREE TIMES DAILY NOT-TAKING CALCIUM 600+D 600-400 MG-UNIT TABLET 1 TABLET WITH FOOD ORALLY TWICE DAILY, NOTES: NONE MEDICATION LIST REVIEWED AND RECONCILED WITH THE PATIENT PAST MEDICAL HISTORY MDD SEVERE ENDOMETRIOSIS, S/P SUPRACERVICAL HYSTERECTOMY, BSO (DR. CHRIS MALIK, [facility]) LEIOMYOMA GERD -EGD/COLONOSCOPY 11/2013 DR HARDY WNL MIGRAINES (DR ARTEAGA) DM2 HTN HYPERLIPIDEMIA CHRONIC NECK/BACK PAIN - NEURO VIT D DEF MORBID OBESITY BLESSING, CPAP (NEURO) FATTY LIVER 05/24 H/O ELEVATED LFTS DIABETIC NEUROPATHY INSOMNIA RHEUMOTOID ARTHRITIS FIBROMYALGIA ALLERGIES ASPIRIN: A CHILD: ALLERGY NAPROXEN: ITCHY: ALLERGY SURGICAL HISTORY C SECTION X 3 HYSTERECTOMY CHOLECYSTECTOMY APPENDECTOMY HOSPITALIZATION/MAJOR DIAGNOSTIC PROCEDURE SURGERIES REVIEW OF SYSTEMS REVIEWED BY: PROVIDER: . CONSTITUTIONAL: ANY CHANGE IN YOUR MEDICAL CONDITION? NO . CHILLS NO . FEVER NO . INFECTION: DO YOU HAVE NEW INFECTIONS? NO . DO YOU HAVE HISTORY OF MRSA? NO . MUSCULOSKELETAL: ANY NEW PATTERNS OF PAIN OR NUMBNESS? NO . GASTROENTEROLOGY: ANY NEW CHANGE IN BOWEL CONTROL? NO . GENITOURINARY: ANY NEW CHANGE IN BLADDER CONTROL? NO . IS THERE A CHANCE YOU COULD BE ? NO . HEMATOLOGY/LYMPH: DO YOU TAKE ANY BLOOD THINNERS? (FOR EXAMPLE- COUMADIN, PLAVIX, AGGRENOX, PLATEL, PRADAXA, OR XARELTO) NO . WHEN WAS YOUR LAST DOSE? DATE: TIME: . NEUROLOGY: HAVE YOU FALLEN IN THE PAST 6 MONTHS? NO . ANY NEW EXTREMITY NUMBNESS OR WEAKNESS? NO . CARDIOLOGY: DO YOU HAVE A PACEMAKER OR DEFIBRILLATOR? NO . RESPIRATORY: HAVE YOU BEEN SICK IN THE PAST WEEK? NO . FEVER NO . FLU LIKE SYMPTOMS? NO . COUGH NO . INTEGUMENTARY: DO YOU HAVE ANY RASHES OR OPEN SORES? NO . ALLERGIC/IMMUNO: ARE YOU ALLERGIC TO SHELLFISH OR IV DYE? NO . ANY NEW ALLERGIES? NO . PSYCHIATRIC: DO YOU HAVE THOUGHTS OF HURTING YOURSELF OR SOMEONE ELSE? NO . ARE YOU ABUSED, NEGLECTED, OR IN AN UNSAFE ENVIRONMENT? NO . ENDOCRINOLOGY: ARE YOU DIABETIC? YES . OTHER: DO YOU NEED ANY PRESCRIPTIONS? NO . IF YES, PLEASE LIST: ____ . ANY NEW PROBLEMS WITH YOUR MEDICATIONS? NO . WHEN DID YOU LAST EAT? 03/31/17 1700 . WHEN DID YOU LAST DRINK? 04/01/17 0800 . WHAT DID YOU LAST DRINK? WATER . NAME OF PERSON DRIVING YOU HOME? TACO MONTENEGRO . DO YOU HAVE ANY OTHER QUESTIONS OR CONCERNS NO . VITAL SIGNS WT 206 LBS, HT 64 IN, BMI 35.36 INDEX, BP 160/98 MM HG, HR 79 /MIN, RR 16 /MIN, TEMP 99.4 F, OXYGEN SAT % 98, SAFE IN ENV? (Y/N) Y, REVIEWED BY: EM. ASSESSMENTS MYALGIA - M79.1 (PRIMARY) PROCEDURES PN TRIGGER POINT INJECTION WITH STEROIDS PRE PROCEDURE DIAGNOSIS 1. MYALGIA 2. PAIN AT BILATERAL SHOULDER AREA AND BILATERAL LOWER BACK AREA POST PROCEDURE DIAGNOSIS 1. MYALGIA 2. PAIN AT BILATERAL SHOULDER LEVEL AND BILATERAL LOWER BACK AREA PROCEDURE TRIGGER POINT INJECTION AT BILATERAL SHOULDER AREA AND BILATERAL NECK AREA SURGEON DR. ANTONINO LEE CONTACT CENTRE SUPERVISOR NONE ANESTHESIA LOCAL PRE PROCEDURE NOTE THE PATIENT HAS A HISTORY OF CHRONIC PAIN AT THE RIGHT AND LEFT SHOULDER AREA AND RIGHT AND LEFT LOWER BACK AREA. I EVALUATE THE PATIENT AND REVIEWED THE CHART. THERE IS EVIDENCE OF BANDS OF TISSUE WITH RESTRICTION OF MOVEMENT AND PRESENCE OF TRIGGER POINT AT THE AFFECTED AREA. I WENT OVER THE RISKS, ALTERNATIVES, AND BENEFITS ASSOCIATED WITH THIS PROCEDURE. THE PATIENT WOULD LIKE TO PROCEED AND GIVE CONSENT TO PERFORMED THE PROCEDURE. THE PATIENT DENIES UNEXPLAINABLE WEIGHT LOSS, FEVER, CHILLS, OR NEW CHANGES IN URINARY OR BOWEL CONTROL DESCRIPTION OF PROCEDURE THE PATIENT WAS BROUGHT TO THE PROCEDURE ROOM AND PLACED IN THE SITTING POSITION. THE AREA WAS CLEANED WITH ALCOHOL. THE PROCEDURE WAS DONE USING ASEPTIC STERILE TECHNIQUE. I CHECKED LATERALITY AND THE LEVEL WHERE THE PROCEDURE WAS GOING TO BE PERFORMED WITH THE PATIENT AND THE SUPPORTING STAFF AT THE MOMENT OF THE TIME OUT IN THE PROCEDURE ROOM. USING A 25-GAUGE NEEDLE, TRIGGER POINTS WERE INJECTED AT THE RIGHT AND LEFT SHOULDER AREA AND RIGHT AND LEFT LOWER BACK AREA WITH A TOTAL OF 40 ML OF BUPIVACAINE 0.25% AND KENALOG 40 MG. THERE WAS NO EVIDENCE OF BLOOD, PARESTHESIA OR CEREBROSPINAL FLUID DURING THE PROCEDURE. THE PATIENT WAS SENT TO THE RECOVERY ROOM. THE PATIENT WAS MOVING THE EXTREMITIES AND DOING WELL. THERE WAS NO COMPLICATION DURING THE PROCEDURE POST PROCEDURE NOTE THE PATIENT WILL BE SEEN IN A FOLLOW UP IN THE NEXT FEW WEEKS. INSTRUCTIONS WERE GIVEN, QUESTIONS WERE ANSWERED, AND THE PATIENT EXPRESSED UNDERSTANDING AND AGREES WITH THE PLAN. I, ISHA LORA, DOCUMENTED THE ABOVE INFORMATION ACTING A SCRIBE FOR DR. LEE. I HAVE REVIEWED THE ABOVE DOCUMENT, WRITTEN BY ISHA LEWIS AND I VERIFY THAT IT IS ACCURATE PROCEDURE CODES 18714 INJECT TRIGGER POINTS 3/> DISPOSITION & COMMUNICATION FOLLOW UP 3 WEEKS ELECTRONICALLY SIGNED BY ANTONINO LEE MD ON 04/12/2017 AT 08:45 PM EDT DISCLAIMER : THIS IS A VISIT SUMMARY EXTRACTED FROM THE [employer] CHART. IT IS NOT A COPY OF THE [employer] PROGRESS NOTE. MTDAndrey
== END | disposition home or self-care (01) ==
LOC: M PAIN 14:40
PROVIDERS: ATTEND Anesthesiology
DX: G89.29 Other chronic pain (principal); M79.1 Myalgia; F33.9 Major depressive disorder, recurrent, unspecified; N80.9 Endometriosis, unspecified; D21.9 Benign neoplasm of connective and other soft tissue, unspecified; K21.9 Gastro-esophageal reflux disease without esophagitis; G43.909 Migraine, unspecified, not intractable, without status migrainosus; E11.40 Type 2 diabetes mellitus with diabetic neuropathy, unspecified; I10 Essential (primary) hypertension; E78.5 Hyperlipidemia, unspecified; E55.9 Vitamin D deficiency, unspecified; E66.9 Obesity, unspecified; G47.33 Obstructive sleep apnea (adult) (pediatric); K76.0 Fatty (change of) liver, not elsewhere classified; M06.9 Rheumatoid arthritis, unspecified; Z79.899 Other long term (current) drug therapy; Z79.84 Long term (current) use of oral hypoglycemic drugs; Z79.51 Long term (current) use of inhaled steroids; Z88.8 Allergy status to other drugs, medicaments and biological substances

== ENCOUNTER → 2017-05-05 | Outpatient (CLI) | payer OTHER ==
[~2017-05-05] MED LIST changes: -BUPIVACAINE HCL 0.25% 10 ML VIAL As Ordered ONE; -BUPIVACAINE HCL 0.25% 30 ML VIAL As Ordered ONE; -TRIAMCINOLONE ACETONIDE SUSP 40 MG/ML VIAL (J3301) As Ordered ONE; -diazePAM 5 MG TAB As Ordered ONE; -oxyCODONE 5MG TAB As Ordered ONE
--- NOTE | 2017-05-24 01:32 | ECWPNPC ---
PATIENT NAME: ADOLFO THORNE : 1965 GENDER: FEMALE VISIT DATE: 05/05/2017 DISCHARGE DATE: 05/05/17 1159 VISIT LOCKED DATE TIME: PHYSICIAN: SLY DAVIS RESOURCE: SLY DAVIS REASON FOR APPOINTMENT 1. NECK,HIP,BACK HISTORY OF PRESENT ILLNESS HISTORY OF PRESENT ILLNESS: PAIN THE PATIENT DESCRIBES THE PAIN... FALL RISK SCREENING: HERE FOR POST PROCEDURE F/U.HAD TPI OVER CERVICAL SPINE 04-01,HAD >50% IMPROVEMENT IN PAIN FOR 3 WEEKS.CONTINUES WITH SOME BENEFIT TODAY.CHIEF AREA OF PAIN IS NECK. RATING PAIN VAS 4/10.PAIN IS ALSO LOCATED LOW BACK WITH RADIATION INTO THIGHS.CONTINUES TO FEEL NECK IS WORSE.DESCRIBES PAIN INTERMITTENT ACHING.PAIN IS AGGREVATED BY PROLONGED READING.PAIN IS RELIEVED SOMEWHAT WITH MASSAGE AND HEAT. SCREENING :NO FALLS IN THE PAST YEAR :NO FALLS IN THE PAST YEAR :NO FALLS IN THE PAST YEAR CURRENT MEDICATIONS TAKING TYLENOL 650 MG TABLET 1 TABLET NEEDED ORALLY EVERY 6 HRS TAKING CYMBALTA 60 MG CAPSULE DELAYED RELEASE PARTICLES 1 CAPSULE ORALLY ONCE A DAY TAKING ZONISAMIDE 100 MG CAPSULE 1 CAP ORALLY TWICE A DAY TAKING GABAPENTIN 400 MG CAPSULE ORALLY 800MG IN AM/400MG@3P/800MG AT BEDTIME TAKING BACLOFEN 20 MG TABLET 1 TABLET WITH FOOD OR MILK ORALLY THREE TIMES A DAY NEEDED FOR SPASM AND PAIN TAKING ENBREL 25 MG/0.5ML SOLUTION PREFILLED SYRINGE 1 ML SUBCUTANEOUS TWICE WEEKLY TAKING HYDROCODONE-ACETAMINOPHEN 5-325 MG TABLET 1 TABLET NEEDED FOR PAIN ORALLY FOR PAIN EVERY 6 HRS MDD 3 TAKING VITAMIN B-12 1000 MCG TABLET 1 TAB ORALLY DAILY TAKING VITAMIN C 250 MG TABLET CHEWABLE 2 TAB ORALLY ONCE A DAY TAKING TRAZODONE HCL 100 MG TABLET 1 TAB(S) ORALLY DAILY AT NIGHT TAKING CO Q 10 60 MG CAPSULE 1 CAPSULE WITH A MEAL ORALLY ONCE A DAY TAKING VITAMIN E 400 UNIT TABLET 1 TABLET ORALLY ONCE A DAY TAKING VITAMIN D 2000 UNITS TABLET TAKE ONE TABLET BY MOUTH EVERY DAY TAKING GEMFIBROZIL 600 MG TABLET TAKE ONE TABLET BY MOUTH TWICE A DAY TAKING METFORMIN HCL 1000 MG TABLET 1 TABLET WITH MEALS ORALLY TWICE A DAY TAKING CETIRIZINE HCL 10 MG TABLET 1 TABLET ORALLY ONCE A DAY TAKING SINGULAIR 10 MG TABLET 1 TABLET IN THE EVENING ORALLY ONCE A DAY TAKING FERROUS SULFATE 325 (65 FE) MG TABLET DELAYED RELEASE 1 TABLET ORALLY ONCE A DAY TAKING ONE TOUCH ULTRA BLUE STRIPS DIRECTED SUBCUTANEOUSLY DAILY, DX E11.9 TAKING BIOTIN 5000 MCG CAPSULE 1 CAPSULE ORALLY ONCE A DAY TAKING HYDROXYCHLOROQUINE SULFATE 200 MG TABLET 1 TABLET WITH FOOD OR MILK ORALLY BID TAKING FLUTICASONE PROPIONATE 50 MCG/ACT SUSPENSION 1 SPRAY IN EACH NOSTRIL NASALLY TWICE DAILY TAKING ZOCOR 40 MG TABLET 1 TABLET IN THE EVENING ORALLY ONCE A DAY TAKING NEXIUM 40 MG CAPSULE DELAYED RELEASE 1 CAPS, AUDRA ORALLY TWICE DAILY NOT-TAKING MULTI FOR HER TABLET ORALLY ONCE DAILY NOT-TAKING PROBIOTIC CAPSULE ORALLY BID, NOTES: 01-18-17 0600 NOT-TAKING AUGMENTIN 500-125 MG TABLET 1 TABLET ORALLY THREE TIMES DAILY NOT-TAKING CALCIUM 600+D 600-400 MG-UNIT TABLET 1 TABLET WITH FOOD ORALLY TWICE DAILY, NOTES: NONE MEDICATION LIST REVIEWED AND RECONCILED WITH THE PATIENT PAST MEDICAL HISTORY MDD SEVERE ENDOMETRIOSIS, S/P SUPRACERVICAL HYSTERECTOMY, BSO (DR. CHRIS MALIK, [facility]) LEIOMYOMA GERD -EGD/COLONOSCOPY 11/2013 DR HARDY WNL MIGRAINES (DR ARTEAGA) DM2 HTN HYPERLIPIDEMIA CHRONIC NECK/BACK PAIN - NEURO VIT D DEF MORBID OBESITY BLESSING, CPAP (NEURO) FATTY LIVER 05/24 H/O ELEVATED LFTS DIABETIC NEUROPATHY INSOMNIA RHEUMOTOID ARTHRITIS FIBROMYALGIA ALLERGIES ASPIRIN: A CHILD: ALLERGY NAPROXEN: ITCHY: ALLERGY SURGICAL HISTORY C SECTION X 3 HYSTERECTOMY CHOLECYSTECTOMY APPENDECTOMY HOSPITALIZATION/MAJOR DIAGNOSTIC PROCEDURE SURGERIES REVIEW OF SYSTEMS REVIEWED BY: PROVIDER: SLY STOUT . CONSTITUTIONAL: ANY CHANGE IN YOUR MEDICAL CONDITION? NO . CHILLS NO . FEVER NO . INFECTION: DO YOU HAVE NEW INFECTIONS? NO . DO YOU HAVE HISTORY OF MRSA? NO . MUSCULOSKELETAL: ANY NEW PATTERNS OF PAIN OR NUMBNESS? NO . GASTROENTEROLOGY: ANY NEW CHANGE IN BOWEL CONTROL? NO . GENITOURINARY: ANY NEW CHANGE IN BLADDER CONTROL? NO . IS THERE A CHANCE YOU COULD BE ? NO . HEMATOLOGY/LYMPH: DO YOU TAKE ANY BLOOD THINNERS? (FOR EXAMPLE- COUMADIN, PLAVIX, AGGRENOX, PLATEL, PRADAXA, OR XARELTO) NO . WHEN WAS YOUR LAST DOSE? DATE: TIME: . NEUROLOGY: HAVE YOU FALLEN IN THE PAST 6 MONTHS? NO . ANY NEW EXTREMITY NUMBNESS OR WEAKNESS? NO . CARDIOLOGY: DO YOU HAVE A PACEMAKER OR DEFIBRILLATOR? NO . RESPIRATORY: HAVE YOU BEEN SICK IN THE PAST WEEK? NO . FEVER NO . FLU LIKE SYMPTOMS? NO . COUGH NO . INTEGUMENTARY: DO YOU HAVE ANY RASHES OR OPEN SORES? NO . ALLERGIC/IMMUNO: ARE YOU ALLERGIC TO SHELLFISH OR IV DYE? NO . ANY NEW ALLERGIES? NO . PSYCHIATRIC: DO YOU HAVE THOUGHTS OF HURTING YOURSELF OR SOMEONE ELSE? NO . ARE YOU ABUSED, NEGLECTED, OR IN AN UNSAFE ENVIRONMENT? NO . ENDOCRINOLOGY: ARE YOU DIABETIC? YES . OTHER: DO YOU NEED ANY PRESCRIPTIONS? NO . IF YES, PLEASE LIST: ____ . ANY NEW PROBLEMS WITH YOUR MEDICATIONS? NO . WHEN DID YOU LAST EAT? ____ . WHEN DID YOU LAST DRINK? ____ . WHAT DID YOU LAST DRINK? ____ . NAME OF PERSON DRIVING YOU HOME? ____ . DO YOU HAVE ANY OTHER QUESTIONS OR CONCERNS NO . VITAL SIGNS WT 209.4 LBS, HT 64 IN, BMI 35.94 INDEX, BP 116/65 MM HG, HR 84 /MIN, RR 18 /MIN, TEMP 97.1 F, OXYGEN SAT % 97%, SAFE IN ENV? (Y/N) Y, NA INITIALS TR 1117, REVIEWED BY: EM. EXAMINATION GENERAL EXAMINATION: LUNGS:LUNG SOUNDS ARE CLEAR. HEART:HEART RATE REGULAR. MUSCULOSKELETAL:TRIGGER POINTS: NOTED OVER CERVICAL PARASPINAL REGION.. MRIL/S [id number] -REVIEWED. ASSESSMENTS MYALGIA - M79.1 (PRIMARY) CERVICALGIA - M54.2 TREATMENT MYALGIA NOTES: PT 2X WK X 6 WK MYOFASCIAL RELEASE CERVICAL. PROCEDURE CODES FA211 ESTABILISHED PATIENT [facility] CHARGE DISPOSITION & COMMUNICATION FOLLOW UP 2 MONTHS ELECTRONICALLY SIGNED BY ARGELIA MORELAND ON 05/23/2017 AT 08:06 PM EDT DISCLAIMER : THIS IS A VISIT SUMMARY EXTRACTED FROM THE [employer] CHART. IT IS NOT A COPY OF THE [employer] PROGRESS NOTE. KEYONNA
== END ==
LOC: M PAIN 11:00
PROVIDERS: ATTEND Nurse Practitioner Family
DX: G89.29 Other chronic pain (principal); M54.2 Cervicalgia; M79.1 Myalgia; F32.9 Major depressive disorder, single episode, unspecified; K21.9 Gastro-esophageal reflux disease without esophagitis; G43.909 Migraine, unspecified, not intractable, without status migrainosus; E11.9 Type 2 diabetes mellitus without complications; I10 Essential (primary) hypertension; E78.5 Hyperlipidemia, unspecified; E55.9 Vitamin D deficiency, unspecified; E66.9 Obesity, unspecified; Z68.35 Body mass index [BMI] 35.0-35.9, adult; G47.33 Obstructive sleep apnea (adult) (pediatric); D50.8 Other iron deficiency anemias; M06.9 Rheumatoid arthritis, unspecified; Z88.6 Allergy status to analgesic agent; Z88.8 Allergy status to other drugs, medicaments and biological substances; Z79.84 Long term (current) use of oral hypoglycemic drugs; Z79.899 Other long term (current) drug therapy

== ENCOUNTER → 2017-06-30 | Outpatient (REF) | payer OTHER ==
[2017-06-30 20:24] LABS: PERCENT SATURATION 10.9 % (13.2-45.0); URIC ACID 5.3 MG/DL (2.6-6.0)
[2017-06-30 20:58] LABS: BASO % 0.6 % (0.0-1.0); EOS # 0.1 K/mm3 (0.0-0.50); EOS % 1.9 % (0.0-3.0); LARGE UNSTAINED CELL # 0.2 K/mm3 (0.0-0.4); LARGE UNSTAINED CELL % 2.5 % (0.0-4.0); LYMPH # 3.3 K/mm3 (1.5-4.5); LYMPH % 43.5 % (24.0-44.0); MEAN CORPUSCULAR HEMOGLOBIN 28.2 pg (27.0-33.0); MEAN CORPUSCULAR HGB CONC 34.3 g/dl (32.0-36.5); MEAN CORPUSCULAR VOLUME 82.4 fl (80.0-96.0); MONO # 0.5 K/mm3 (0.0-0.8); MONO % 6.6 % (0.0-5.0); NEUTROPHILS # 3.4 K/mm3 (1.8-7.7); NEUTROPHILS % 44.9 % (36.0-66.0); PLATELET COUNT, AUTOMATED 270 k/mm3 (150-450); RED CELL DISTRIBUTION WIDTH 13.4 % (11.5-14.5); WHITE BLOOD COUNT 7.6 K/mm3 (4.0-10.0)
== END ==
LOC: M SFHCADAM 16:36
PROVIDERS: ATTEND Physician Assistant Medical
DX: D50.8 Other iron deficiency anemias (principal); M79.674 Pain in right toe(s)

== ENCOUNTER → 2017-07-07 | Outpatient (CLI) | payer OTHER ==
--- NOTE | 2017-07-28 01:51 | ECWPNPC ---
PATIENT NAME: ADOLFO THORNE : 1965 GENDER: FEMALE VISIT DATE: 07/07/2017 DISCHARGE DATE: 07/07/17 1627 VISIT LOCKED DATE TIME: PHYSICIAN: SLY DAVIS RESOURCE: SLY DAVIS REASON FOR APPOINTMENT 1. NECK AND BACK HISTORY OF PRESENT ILLNESS HISTORY OF PRESENT ILLNESS: HERE FOR F/U OF CHRONIC NECK AND LOW BACK PAIN.LOW BACK IS DOING GOOD.NECK PAIN IS RESPONDING SOMEWHAT TO PT/MYOFASCIAL RELEASE AND HOME EXCERSISE.RATING PAIN VAS 4/10.DISCUSSED MEDICATION AND TREATMENT OPTIONS. PAIN THE PATIENT DESCRIBES THE PAIN... FALL RISK SCREENING: SCREENING :NO FALLS IN THE PAST YEAR CURRENT MEDICATIONS TAKING TYLENOL 650 MG TABLET 1 TABLET NEEDED ORALLY EVERY 6 HRS TAKING CYMBALTA 60 MG CAPSULE DELAYED RELEASE PARTICLES 1 CAPSULE ORALLY ONCE A DAY TAKING ZONISAMIDE 100 MG CAPSULE 1 CAP ORALLY TWICE A DAY TAKING GABAPENTIN 400 MG CAPSULE ORALLY 800MG IN AM/400MG@3P/800MG AT BEDTIME TAKING BACLOFEN 20 MG TABLET 1 TABLET WITH FOOD OR MILK ORALLY THREE TIMES A DAY NEEDED FOR SPASM AND PAIN TAKING ENBREL 25 MG/0.5ML SOLUTION PREFILLED SYRINGE 1 ML SUBCUTANEOUS TWICE WEEKLY TAKING HYDROCODONE-ACETAMINOPHEN 5-325 MG TABLET 1 TABLET NEEDED FOR PAIN ORALLY FOR PAIN EVERY 6 HRS MDD 3 TAKING VITAMIN B-12 1000 MCG TABLET 1 TAB ORALLY DAILY TAKING VITAMIN C 250 MG TABLET CHEWABLE 2 TAB ORALLY ONCE A DAY TAKING CO Q 10 60 MG CAPSULE 1 CAPSULE WITH A MEAL ORALLY ONCE A DAY TAKING VITAMIN E 400 UNIT TABLET 1 TABLET ORALLY ONCE A DAY TAKING VITAMIN D 2000 UNITS TABLET TAKE ONE TABLET BY MOUTH EVERY DAY TAKING CETIRIZINE HCL 10 MG TABLET 1 TABLET ORALLY ONCE A DAY TAKING BIOTIN 5000 MCG CAPSULE 1 CAPSULE ORALLY ONCE A DAY TAKING HYDROXYCHLOROQUINE SULFATE 200 MG TABLET 1 TABLET WITH FOOD OR MILK ORALLY BID TAKING ZOCOR 40 MG TABLET 1 TABLET IN THE EVENING ORALLY ONCE A DAY TAKING NEXIUM 40 MG CAPSULE DELAYED RELEASE 1 CAPS, AUDRA ORALLY TWICE DAILY TAKING SINGULAIR 10 MG TABLET 1 TABLET IN THE EVENING ORALLY ONCE A DAY TAKING TRAZODONE HCL 100 MG TABLET 1 TAB(S) ORALLY DAILY AT NIGHT TAKING FLUTICASONE PROPIONATE 50 MCG/ACT SUSPENSION 1 SPRAY IN EACH NOSTRIL NASALLY TWICE DAILY TAKING METFORMIN HCL 1000 MG TABLET 1 TABLET WITH MEALS ORALLY TWICE A DAY TAKING GEMFIBROZIL 600 MG TABLET TAKE ONE TABLET BY MOUTH TWICE A DAY TAKING FERROUS SULFATE 325 (65 FE) MG TABLET DELAYED RELEASE 1 TABLET ORALLY TWICE DAILY UNKNOWN ONE TOUCH ULTRA BLUE STRIPS DIRECTED SUBCUTANEOUSLY DAILY, DX E11.9 UNKNOWN MULTI FOR HER TABLET ORALLY ONCE DAILY UNKNOWN PROBIOTIC CAPSULE ORALLY BID, NOTES: 01-18-17 0600 UNKNOWN AUGMENTIN 500-125 MG TABLET 1 TABLET ORALLY THREE TIMES DAILY UNKNOWN CALCIUM 600+D 600-400 MG-UNIT TABLET 1 TABLET WITH FOOD ORALLY TWICE DAILY, NOTES: NONE MEDICATION LIST REVIEWED AND RECONCILED WITH THE PATIENT PAST MEDICAL HISTORY MDD SEVERE ENDOMETRIOSIS, S/P SUPRACERVICAL HYSTERECTOMY, BSO (DR. CHRIS MALIK, [facility] LEIOMYOMA GERD -EGD/COLONOSCOPY 11/2013 DR HARDY WNL MIGRAINES (DR ARTEAGA) DM2 HTN HYPERLIPIDEMIA CHRONIC NECK/BACK PAIN - NEURO VIT D DEF MORBID OBESITY BLESSING, CPAP (NEURO) FATTY LIVER 05/24 H/O ELEVATED LFTS DIABETIC NEUROPATHY INSOMNIA RHEUMOTOID ARTHRITIS FIBROMYALGIA ALLERGIES ASPIRIN: A CHILD: ALLERGY NAPROXEN: ITCHY: ALLERGY SOCIAL HISTORY GENERAL: TOBACCO USE ARE YOU A:FORMER SMOKER HOW LONG HAS IT BEEN SINCE YOU LAST SMOKED?> 10 YEARS LUNG CANCER SCREENING SMOKING STATUS:FORMER SMOKER BMI CARE GOAL FOLLOW-UP ABOVE NORMAL BMI FOLLOW-UPDIETARY MANAGEMENT EDUCATION, GUIDANCE, AND COUNSELING ALCOHOL SCREENING DID YOU HAVE A DRINK CONTAINING ALCOHOL IN THE PAST YEAR?YES POINTS2 INTERPRETATIONNEGATIVE HOW OFTEN DID YOU HAVE A DRINK CONTAINING ALCOHOL IN THE PAST YEAR?TWO TO FOUR TIMES A MONTH (2 POINTS) HOW MANY DRINKS DID YOU HAVE ON A TYPICAL DAY WHEN YOU WERE DRINKING IN THE PAST YEAR?1 OR 2 (0 POINTS) HOW OFTEN DID YOU HAVE SIX OR MORE DRINKS ON ONE OCCASION IN THE PAST YEAR?NEVER (0 POINTS) RECREATIONAL DRUG USE DRUG USE?NO CAFFEINE CAFFEINE USE?YES DRINKS GREEN TEA HIV / HEP-C SCREENING HIV TEST OFFERED TO PATIENT:YES DATE OFFERED:02/22/2017 TEST ACCEPTED:NO REASON:PATIENT DECLINED HEP-C TEST OFFERED TO PATIENT:YES DATE OFFERED:02/22/2017 TEST ACCEPTED:NO REASON:PATIENT DECLINED DIET: REGULAR. ORTHODOXY [id number] OTHER LANGUAGE LANGUAGES SPOKEN:TURKISH LEARNING BARRIERS / SPECIAL NEEDS CHANGE FROM LAST VISIT?NO BARRIERS TO LEARNING?NO HEARING IMPAIRED?NO VISION IMPAIRED?YES :CORRECTIVE LENSES COGNITIVELY IMPAIRED?NO READINESS TO LEARN?YES LEARNING PREFERENCES?NO LEARNING CAPABILITIES PRESENT?YES EMOTIONAL BARRIERS?NO SPECIAL DEVICES?NO SPONGE FISHERMAN NEEDED?NO PAIN CLINIC PFS, CLERGY, PUBLIC HEALTH REFERRALS HAS THE PATIENT BEEN EDUCATED REGARDING HIS/HER PLAN OF CARE?YES HAS THE PATIENT BEEN EDUCATED REGARDING PAIN, THE RISK FOR PAIN, THE IMPORTANCE OF EFFECTIVE PAIN MANAGEMENT, AND THE PAIN ASSESSMENT PROCESS?YES PATIENT: ____. REVIEW OF SYSTEMS REVIEWED BY: PROVIDER: SLY STOUT . CONSTITUTIONAL: ANY CHANGE IN YOUR MEDICAL CONDITION? NO . CHILLS NO . FEVER NO . INFECTION: DO YOU HAVE NEW INFECTIONS? NO . DO YOU HAVE HISTORY OF MRSA? NO . MUSCULOSKELETAL: ANY NEW PATTERNS OF PAIN OR NUMBNESS? NO . GASTROENTEROLOGY: ANY NEW CHANGE IN BOWEL CONTROL? NO . GENITOURINARY: ANY NEW CHANGE IN BLADDER CONTROL? NO . IS THERE A CHANCE YOU COULD BE ? NO . HEMATOLOGY/LYMPH: DO YOU TAKE ANY BLOOD THINNERS? (FOR EXAMPLE- COUMADIN, PLAVIX, AGGRENOX, PLATEL, PRADAXA, OR XARELTO) NO . WHEN WAS YOUR LAST DOSE? DATE: TIME: . NEUROLOGY: HAVE YOU FALLEN IN THE PAST 6 MONTHS? NO . ANY NEW EXTREMITY NUMBNESS OR WEAKNESS? NO . CARDIOLOGY: DO YOU HAVE A PACEMAKER OR DEFIBRILLATOR? NO . RESPIRATORY: HAVE YOU BEEN SICK IN THE PAST WEEK? NO . FEVER NO . FLU LIKE SYMPTOMS? NO . COUGH NO . INTEGUMENTARY: DO YOU HAVE ANY RASHES OR OPEN SORES? NO . ALLERGIC/IMMUNO: ARE YOU ALLERGIC TO SHELLFISH OR IV DYE? NO . ANY NEW ALLERGIES? NO . PSYCHIATRIC: DO YOU HAVE THOUGHTS OF HURTING YOURSELF OR SOMEONE ELSE? NO . ARE YOU ABUSED, NEGLECTED, OR IN AN UNSAFE ENVIRONMENT? NO . ENDOCRINOLOGY: ARE YOU DIABETIC? NO . OTHER: DO YOU NEED ANY PRESCRIPTIONS? NO . IF YES, PLEASE LIST: ____ . ANY NEW PROBLEMS WITH YOUR MEDICATIONS? NO . WHEN DID YOU LAST EAT? ____ . WHEN DID YOU LAST DRINK? ____ . WHAT DID YOU LAST DRINK? ____ . NAME OF PERSON DRIVING YOU HOME? ____ . DO YOU HAVE ANY OTHER QUESTIONS OR CONCERNS NO . VITAL SIGNS WT 202 LBS, HT 64 IN, BMI 34.67 INDEX, BP 127/77 MM HG, HR 88 /MIN, RR 18 /MIN, TEMP 99.5 F, OXYGEN SAT % 98, SAFE IN ENV? (Y/N) YES, REVIEWED BY: FREDY. EXAMINATION GENERAL EXAMINATION: LUNGS:LUNG SOUNDS ARE CLEAR. HEART:HEART RATE REGULAR. MUSCULOSKELETAL:TRIGGER POINTS: NOTED OVER R>L PARASPINAL REGION.. MRIL/S [id number] -REVIEWED. ASSESSMENTS MYALGIA - M79.1 (PRIMARY) CERVICALGIA - M54.2 TREATMENT MYALGIA NOTES: CONTINUE PTTPI NECK. PROCEDURE CODES FA211 ESTABILISHED PATIENT [facility] CHARGE DISPOSITION & COMMUNICATION FOLLOW UP WE WILL CONTACT (REASON: TPI NECK) ELECTRONICALLY SIGNED BY ARGELIA MORELAND ON 07/25/2017 AT 08:58 AM EDT DISCLAIMER : THIS IS A VISIT SUMMARY EXTRACTED FROM THE [employer] CHART. IT IS NOT A COPY OF THE [employer] PROGRESS NOTE. KEYONNA
== END ==
LOC: M PAIN 15:15
PROVIDERS: ATTEND Nurse Practitioner Family
DX: M79.1 Myalgia (principal); M54.2 Cervicalgia; M54.5 Low back pain; G89.29 Other chronic pain; I10 Essential (primary) hypertension; E11.9 Type 2 diabetes mellitus without complications; K21.9 Gastro-esophageal reflux disease without esophagitis; J30.1 Allergic rhinitis due to pollen; F32.9 Major depressive disorder, single episode, unspecified; Z79.891 Long term (current) use of opiate analgesic; E55.9 Vitamin D deficiency, unspecified; Z79.84 Long term (current) use of oral hypoglycemic drugs; Z79.899 Other long term (current) drug therapy; Z87.891 Personal history of nicotine dependence; Z88.6 Allergy status to analgesic agent

== ENCOUNTER → 2017-07-20 | Outpatient (CLI) | payer OTHER ==
[~2017-07-20] MED LIST changes: +BUPIVACAINE HCL 0.25% 10 ML VIAL As Ordered ONE; +BUPIVACAINE HCL 0.25% 30 ML VIAL As Ordered ONE; +TRIAMCINOLONE ACETONIDE SUSP 40 MG/ML VIAL (J3301) As Ordered ONE; +diazePAM 5 MG TAB As Ordered ONE; +oxyCODONE 5MG TAB As Ordered ONE
--- NOTE | 2017-07-31 23:57 | ECWPNPC ---
PATIENT NAME: ADOLFO THORNE : 1965 GENDER: FEMALE VISIT DATE: 07/20/2017 DISCHARGE DATE: 07/20/171709 VISIT LOCKED DATE TIME: PHYSICIAN: ANTONINO LEE RESOURCE: ANTONINO LEE REASON FOR APPOINTMENT 1. TPI HISTORY OF PRESENT ILLNESS HISTORY OF PRESENT ILLNESS: PAIN THE PATIENT DESCRIBES THE PAIN... FALL RISK SCREENING: SCREENING :NO FALLS IN THE PAST YEAR CURRENT MEDICATIONS TAKING TYLENOL 650 MG TABLET 1 TABLET NEEDED ORALLY EVERY 6 HRS, NOTES: NONE LATELY TAKING CYMBALTA 60 MG CAPSULE DELAYED RELEASE PARTICLES 1 CAPSULE ORALLY ONCE A DAY, NOTES: 07/20/17699 TAKING ZONISAMIDE 100 MG CAPSULE 1 CAP ORALLY TWICE A DAY, NOTES: 07/20/17699 TAKING GABAPENTIN 400 MG CAPSULE ORALLY 800MG IN AM/400MG@3P/800MG AT BEDTIME, NOTES: 07/20/17699 TAKING BACLOFEN 20 MG TABLET 1 TABLET WITH FOOD OR MILK ORALLY THREE TIMES A DAY NEEDED FOR SPASM AND PAIN, NOTES: 07/20/17699 TAKING ENBREL 25 MG/0.5ML SOLUTION PREFILLED SYRINGE 1 ML SUBCUTANEOUS TWICE WEEKLY, NOTES: 07/17/17 TAKING HYDROCODONE-ACETAMINOPHEN 5-325 MG TABLET 1 TABLET NEEDED FOR PAIN ORALLY FOR PAIN EVERY 6 HRS MDD 3, NOTES: NONE LATELY TAKING VITAMIN B-12 1000 MCG TABLET 1 TAB ORALLY DAILY, NOTES: 07/20/17699 TAKING VITAMIN C 250 MG TABLET CHEWABLE 2 TAB ORALLY ONCE A DAY, NOTES: 07/20/17699 TAKING CO Q 10 60 MG CAPSULE 1 CAPSULE WITH A MEAL ORALLY ONCE A DAY, NOTES: 07/20/17699 TAKING VITAMIN E 400 UNIT TABLET 1 TABLET ORALLY ONCE A DAY, NOTES: 07/20/17699 TAKING VITAMIN D 2000 UNITS TABLET TAKE ONE TABLET BY MOUTH EVERY DAY , NOTES: 07/20/17699 TAKING CETIRIZINE HCL 10 MG TABLET 1 TABLET ORALLY ONCE A DAY, NOTES: 07/19/17 TAKING BIOTIN 5000 MCG CAPSULE 1 CAPSULE ORALLY ONCE A DAY, NOTES: 07/20/17699 TAKING HYDROXYCHLOROQUINE SULFATE 200 MG TABLET 1 TABLET WITH FOOD OR MILK ORALLY BID, NOTES: 07/20/17699 TAKING ZOCOR 40 MG TABLET 1 TABLET IN THE EVENING ORALLY ONCE A DAY, NOTES: 07/19/172199 TAKING NEXIUM 40 MG CAPSULE DELAYED RELEASE 1 CAPS, AUDRA ORALLY TWICE DAILY, NOTES: 07/20/17699 TAKING SINGULAIR 10 MG TABLET 1 TABLET IN THE EVENING ORALLY ONCE A DAY, NOTES: 07/20/17699 TAKING TRAZODONE HCL 100 MG TABLET 1 TAB(S) ORALLY DAILY AT NIGHT, NOTES: 07/19/17 230 TAKING FLUTICASONE PROPIONATE 50 MCG/ACT SUSPENSION 1 SPRAY IN EACH NOSTRIL NASALLY TWICE DAILY, NOTES: 07/20/17699 TAKING METFORMIN HCL 1000 MG TABLET 1 TABLET WITH MEALS ORALLY TWICE A DAY, NOTES: 07/19/172199 TAKING GEMFIBROZIL 600 MG TABLET TAKE ONE TABLET BY MOUTH TWICE A DAY , NOTES: 07/20/17699 TAKING FERROUS SULFATE 325 (65 FE) MG TABLET DELAYED RELEASE 1 TABLET ORALLY TWICE DAILY, NOTES: 07/20/17699 UNKNOWN ONE TOUCH ULTRA BLUE STRIPS DIRECTED SUBCUTANEOUSLY DAILY, DX E11.9 UNKNOWN MULTI FOR HER TABLET ORALLY ONCE DAILY UNKNOWN PROBIOTIC CAPSULE ORALLY BID, NOTES: 01-18-17599 UNKNOWN AUGMENTIN 500-125 MG TABLET 1 TABLET ORALLY THREE TIMES DAILY UNKNOWN CALCIUM 600+D 600-400 MG-UNIT TABLET 1 TABLET WITH FOOD ORALLY TWICE DAILY, NOTES: NONE MEDICATION LIST REVIEWED AND RECONCILED WITH THE PATIENT PAST MEDICAL HISTORY MDD SEVERE ENDOMETRIOSIS, S/P SUPRACERVICAL HYSTERECTOMY, BSO (DR. CHRIS MALIK, [facility]) LEIOMYOMA GERD -EGD/COLONOSCOPY 11/2013 DR HARDY WNL MIGRAINES (DR ARTEAGA) DM2 HTN HYPERLIPIDEMIA CHRONIC NECK/BACK PAIN - NEURO VIT D DEF MORBID OBESITY BLESSING, CPAP (NEURO) FATTY LIVER 05/24 US H/O ELEVATED LFTS DIABETIC NEUROPATHY INSOMNIA RHEUMOTOID ARTHRITIS FIBROMYALGIA ALLERGIES ASPIRIN: A CHILD: ALLERGY NAPROXEN: ITCHY: ALLERGY SURGICAL HISTORY C SECTION X 3 HYSTERECTOMY CHOLECYSTECTOMY APPENDECTOMY SOCIAL HISTORY GENERAL: TOBACCO USE ARE YOU A:FORMER SMOKER HOW LONG HAS IT BEEN SINCE YOU LAST SMOKED?> 10 YEARS LUNG CANCER SCREENING SMOKING STATUS:FORMER SMOKER BMI CARE GOAL FOLLOW-UP ABOVE NORMAL BMI FOLLOW-UPDIETARY MANAGEMENT EDUCATION, GUIDANCE, AND COUNSELING ALCOHOL SCREENING DID YOU HAVE A DRINK CONTAINING ALCOHOL IN THE PAST YEAR?YES POINTS2 INTERPRETATIONNEGATIVE HOW OFTEN DID YOU HAVE A DRINK CONTAINING ALCOHOL IN THE PAST YEAR?TWO TO FOUR TIMES A MONTH (2 POINTS) HOW MANY DRINKS DID YOU HAVE ON A TYPICAL DAY WHEN YOU WERE DRINKING IN THE PAST YEAR?1 OR 2 (0 POINTS) HOW OFTEN DID YOU HAVE SIX OR MORE DRINKS ON ONE OCCASION IN THE PAST YEAR?NEVER (0 POINTS) RECREATIONAL DRUG USE DRUG USE?NO CAFFEINE CAFFEINE USE?YES DRINKS GREEN TEA HIV / HEP-C SCREENING HIV TEST OFFERED TO PATIENT:YES DATE OFFERED:02/22/2017 TEST ACCEPTED:NO REASON:PATIENT DECLINED HEP-C TEST OFFERED TO PATIENT:YES DATE OFFERED:02/22/2017 TEST ACCEPTED:NO REASON:PATIENT DECLINED DIET: REGULAR. RELIGIOUS [id number] OTHER LANGUAGE LANGUAGES SPOKEN:GUYANESE LEARNING BARRIERS / SPECIAL NEEDS CHANGE FROM LAST VISIT?NO BARRIERS TO LEARNING?NO HEARING IMPAIRED?NO VISION IMPAIRED?YES :CORRECTIVE LENSES COGNITIVELY IMPAIRED?NO READINESS TO LEARN?YES LEARNING PREFERENCES?NO LEARNING CAPABILITIES PRESENT?YES EMOTIONAL BARRIERS?NO SPECIAL DEVICES?NO DITCHER NEEDED?NO PAIN CLINIC PFS, CLERGY, PUBLIC HEALTH REFERRALS HAS THE PATIENT BEEN EDUCATED REGARDING HIS/HER PLAN OF CARE?YES HAS THE PATIENT BEEN EDUCATED REGARDING PAIN, THE RISK FOR PAIN, THE IMPORTANCE OF EFFECTIVE PAIN MANAGEMENT, AND THE PAIN ASSESSMENT PROCESS?YES PATIENT: ____. HOSPITALIZATION/MAJOR DIAGNOSTIC PROCEDURE SURGERIES REVIEW OF SYSTEMS REVIEWED BY: PROVIDER: . CONSTITUTIONAL: ANY CHANGE IN YOUR MEDICAL CONDITION? NO . CHILLS NO . FEVER NO . INFECTION: DO YOU HAVE NEW INFECTIONS? NO . DO YOU HAVE HISTORY OF MRSA? NO . MUSCULOSKELETAL: ANY NEW PATTERNS OF PAIN OR NUMBNESS? NO . GASTROENTEROLOGY: ANY NEW CHANGE IN BOWEL CONTROL? NO . GENITOURINARY: ANY NEW CHANGE IN BLADDER CONTROL? NO . IS THERE A CHANCE YOU COULD BE ? NO . HEMATOLOGY/LYMPH: DO YOU TAKE ANY BLOOD THINNERS? (FOR EXAMPLE- COUMADIN, PLAVIX, AGGRENOX, PLATEL, PRADAXA, OR XARELTO) NO . WHEN WAS YOUR LAST DOSE? DATE: TIME: . NEUROLOGY: HAVE YOU FALLEN IN THE PAST 6 MONTHS? NO . ANY NEW EXTREMITY NUMBNESS OR WEAKNESS? NO . CARDIOLOGY: DO YOU HAVE A PACEMAKER OR DEFIBRILLATOR? NO . RESPIRATORY: HAVE YOU BEEN SICK IN THE PAST WEEK? NO . FEVER NO . FLU LIKE SYMPTOMS? NO . COUGH NO . INTEGUMENTARY: DO YOU HAVE ANY RASHES OR OPEN SORES? NO . ALLERGIC/IMMUNO: ARE YOU ALLERGIC TO SHELLFISH OR IV DYE? NO . ANY NEW ALLERGIES? NO . PSYCHIATRIC: DO YOU HAVE THOUGHTS OF HURTING YOURSELF OR SOMEONE ELSE? NO . ARE YOU ABUSED, NEGLECTED, OR IN AN UNSAFE ENVIRONMENT? NO . ENDOCRINOLOGY: ARE YOU DIABETIC? YES . OTHER: DO YOU NEED ANY PRESCRIPTIONS? NO . IF YES, PLEASE LIST: ____ . ANY NEW PROBLEMS WITH YOUR MEDICATIONS? NO . WHEN DID YOU LAST EAT? 07/20/17899 . WHEN DID YOU LAST DRINK? 07/20/17899 . WHAT DID YOU LAST DRINK? WATER AND COFFEE . NAME OF PERSON DRIVING YOU HOME? MACO THORNE . DO YOU HAVE ANY OTHER QUESTIONS OR CONCERNS NO . VITAL SIGNS WT 202 LBS, HT 64 IN, BMI 34.67 INDEX, BP 133/78 MM HG, HR 79 /MIN, RR 18 /MIN, TEMP 98.7 F, OXYGEN SAT % 97, SAFE IN ENV? (Y/N) YES, REVIEWED BY: FREDY. ASSESSMENTS MYALGIA - M79.1 (PRIMARY) PROCEDURES PN TRIGGER POINT INJECTION WITH STEROIDS PRE PROCEDURE DIAGNOSIS 1. MYALGIA 2. PAIN AT BILATERAL NECK AREA AND BILATERAL SHOULDER AREA POST PROCEDURE DIAGNOSIS 1. MYALGIA 2. PAIN AT BILATERAL NECK AREA AND BILATERAL SHOULDER AREA PROCEDURE TRIGGER POINT INJECTION AT BILATERAL NECK AREA AND BILATERAL SHOULDER AREA SURGEON DR. ANTONINO LEE INTEGRATED CIRCUIT LAYOUT DESIGNER NONE ANESTHESIA LOCAL PRE PROCEDURE NOTE THE PATIENT HAS A HISTORY OF CHRONIC PAIN AT THE RIGHT AND LEFT NECK AREA AND RIGHT AND LEFT SHOULDER AREA. I EVALUATE THE PATIENT AND REVIEWED THE CHART. THERE IS EVIDENCE OF BANDS OF TISSUE WITH RESTRICTION OF MOVEMENT AND PRESENCE OF TRIGGER POINT AT THE AFFECTED AREA. I WENT OVER THE RISKS, ALTERNATIVES, AND BENEFITS ASSOCIATED WITH THIS PROCEDURE. THE PATIENT WOULD LIKE TO PROCEED AND GIVE CONSENT TO PERFORMED THE PROCEDURE. THE PATIENT DENIES UNEXPLAINABLE WEIGHT LOSS, FEVER, CHILLS, OR NEW CHANGES IN URINARY OR BOWEL CONTROL DESCRIPTION OF PROCEDURE THE PATIENT WAS BROUGHT TO THE PROCEDURE ROOM AND PLACED IN THE SITTING POSITION. THE AREA WAS CLEANED WITH ALCOHOL. THE PROCEDURE WAS DONE USING ASEPTIC STERILE TECHNIQUE. I CHECKED LATERALITY AND THE LEVEL WHERE THE PROCEDURE WAS GOING TO BE PERFORMED WITH THE PATIENT AND THE SUPPORTING STAFF AT THE MOMENT OF THE TIME OUT IN THE PROCEDURE ROOM. USING A 25-GAUGE NEEDLE, TRIGGER POINTS WERE INJECTED AT THE RIGHT AND LEFT NECK AREA AND RIGHT AND LEFT SHOULDER AREA WITH A TOTAL OF 40 ML OF BUPIVACAINE 0.25% AND KENALOG 40 MG. THERE WAS NO EVIDENCE OF BLOOD, PARESTHESIA OR CEREBROSPINAL FLUID DURING THE PROCEDURE. THE PATIENT WAS SENT TO THE RECOVERY ROOM. THE PATIENT WAS MOVING THE EXTREMITIES AND DOING WELL. THERE WAS NO COMPLICATION DURING THE PROCEDURE POST PROCEDURE NOTE THE PATIENT WILL BE SEEN IN A FOLLOW UP IN THE NEXT FEW WEEKS. INSTRUCTIONS WERE GIVEN, QUESTIONS WERE ANSWERED, AND THE PATIENT EXPRESSED UNDERSTANDING AND AGREES WITH THE PLAN. I, ISHA LORA, DOCUMENTED THE ABOVE INFORMATION ACTING A SCRIBE FOR DR. LEE. I HAVE REVIEWED THE ABOVE DOCUMENT, WRITTEN BY ISHA LEWIS AND I VERIFY THAT IT IS ACCURATE PROCEDURE CODES 88272 INJECT TRIGGER POINTS 3/> DISPOSITION & COMMUNICATION FOLLOW UP 3 WEEKS ELECTRONICALLY SIGNED BY ANTONINO LEE MD ON 07/31/2017 AT 01:44 PM EDT DISCLAIMER : THIS IS A VISIT SUMMARY EXTRACTED FROM THE [email or web address] CHART. IT IS NOT A COPY OF THE [employer] PROGRESS NOTE. MTDAndrey
== END ==
LOC: M PAIN 15:15
PROVIDERS: ATTEND Anesthesiology
DX: G89.29 Other chronic pain (principal); M54.2 Cervicalgia; M25.511 Pain in right shoulder; M25.512 Pain in left shoulder; M79.1 Myalgia; F32.9 Major depressive disorder, single episode, unspecified; K21.9 Gastro-esophageal reflux disease without esophagitis; G43.909 Migraine, unspecified, not intractable, without status migrainosus; E78.4 Other hyperlipidemia; E55.9 Vitamin D deficiency, unspecified; D50.8 Other iron deficiency anemias; E11.9 Type 2 diabetes mellitus without complications; I10 Essential (primary) hypertension; J30.1 Allergic rhinitis due to pollen; Z88.6 Allergy status to analgesic agent; Z88.8 Allergy status to other drugs, medicaments and biological substances; Z79.84 Long term (current) use of oral hypoglycemic drugs; Z79.899 Other long term (current) drug therapy; Z87.891 Personal history of nicotine dependence
CPT/HCPCS: 20553; J3301

== ENCOUNTER → 2017-08-04 | Outpatient (CLI) | payer OTHER ==
[~2017-08-04] MED LIST changes: -BUPIVACAINE HCL 0.25% 10 ML VIAL As Ordered ONE; -BUPIVACAINE HCL 0.25% 30 ML VIAL As Ordered ONE; -TRIAMCINOLONE ACETONIDE SUSP 40 MG/ML VIAL (J3301) As Ordered ONE; -diazePAM 5 MG TAB As Ordered ONE; -oxyCODONE 5MG TAB As Ordered ONE
--- NOTE | 2017-08-04 09:34 | REP ---
CHEST, TWO VIEWS: No comparison. There is no evidence of acute infiltrate. No pleural effusion is seen. The heart is normal in size. The mediastinal silhouette is unremarkable. The visualized osseous structures are intact. IMPRESSION: No acute pulmonary disease. Signed by Brennan Argueta MD 08/04/2017 02:34 P
== END ==
LOC: M ADAMS 09:04
PROVIDERS: ATTEND Physician Assistant Medical
DX: J06.9 Acute upper respiratory infection, unspecified (principal); R05 Cough

== ENCOUNTER → 2017-09-09 | Outpatient (CLI) | payer OTHER ==
[~2017-09-09] MED LIST changes: +CIPR-249 PO; +DULO1CAP3; +ENBR1INJ; +FLUTISP; +MONT10TA2; +SIMV40TA2; +VITA100067 PO
--- NOTE | 2017-09-30 01:39 | ECWPNPC ---
PATIENT NAME: ADOLFO THORNE : 1965 GENDER: FEMALE VISIT DATE: 09/09/2017 DISCHARGE DATE: 09/09/17 1529 VISIT LOCKED DATE TIME: PHYSICIAN: SLY DAVIS RESOURCE: SLY DAVIS REASON FOR APPOINTMENT 1. POST TPI HISTORY OF PRESENT ILLNESS HISTORY OF PRESENT ILLNESS: HERE FOR POST PROCEDURE F/U OF CHRONIC NECK AND LOW BACK PAIN.HAD TPI BILATERAL NECK AND BILATERAL SHOULDER ON 07-20-17.LOW BACK IS DOING GOOD.NECK PAIN IS 3/10 VAS .LOW BACK PAIN IS VAS 4/10.DISCUSSED MEDICATION AND TREATMENT OPTIONS . PAIN THE PATIENT DESCRIBES THE PAIN... THE PATIENT DESCRIBES THE PAIN... FALL RISK SCREENING: SCREENING :NO FALLS IN THE PAST YEAR CURRENT MEDICATIONS TAKING TYLENOL 650 MG TABLET 1 TABLET NEEDED ORALLY EVERY 6 HRS, NOTES: NONE LATELY TAKING CYMBALTA 60 MG CAPSULE DELAYED RELEASE PARTICLES 1 CAPSULE ORALLY ONCE A DAY, NOTES: 07/20/17699 TAKING ZONISAMIDE 100 MG CAPSULE 1 CAP ORALLY TWICE A DAY, NOTES: 07/20/17699 TAKING GABAPENTIN 400 MG CAPSULE ORALLY 800MG IN AM/400MG@3P/800MG AT BEDTIME, NOTES: 07/20/17699 TAKING BACLOFEN 20 MG TABLET 1 TABLET WITH FOOD OR MILK ORALLY THREE TIMES A DAY NEEDED FOR SPASM AND PAIN, NOTES: 07/20/17699 TAKING ENBREL 25 MG/0.5ML SOLUTION PREFILLED SYRINGE 1 ML SUBCUTANEOUS TWICE WEEKLY, NOTES: 07/17/17 TAKING HYDROCODONE-ACETAMINOPHEN 5-325 MG TABLET 1 TABLET NEEDED FOR PAIN ORALLY FOR PAIN EVERY 6 HRS MDD 3, NOTES: NONE LATELY TAKING VITAMIN B-12 1000 MCG TABLET 1 TAB ORALLY DAILY, NOTES: 07/20/17699 TAKING VITAMIN C 250 MG TABLET CHEWABLE 2 TAB ORALLY ONCE A DAY, NOTES: 07/20/17699 TAKING CO Q 10 60 MG CAPSULE 1 CAPSULE WITH A MEAL ORALLY ONCE A DAY, NOTES: 07/20/17699 TAKING VITAMIN E 400 UNIT TABLET 1 TABLET ORALLY ONCE A DAY, NOTES: 07/20/17699 TAKING VITAMIN D 2000 UNITS TABLET TAKE ONE TABLET BY MOUTH EVERY DAY , NOTES: 07/20/17699 TAKING CETIRIZINE HCL 10 MG TABLET 1 TABLET ORALLY ONCE A DAY, NOTES: 07/19/17 TAKING BIOTIN 5000 MCG CAPSULE 1 CAPSULE ORALLY ONCE A DAY, NOTES: 07/20/17699 TAKING HYDROXYCHLOROQUINE SULFATE 200 MG TABLET 1 TABLET WITH FOOD OR MILK ORALLY BID, NOTES: 07/20/17699 TAKING ZOCOR 40 MG TABLET 1 TABLET IN THE EVENING ORALLY ONCE A DAY, NOTES: 07/19/172199 TAKING NEXIUM 40 MG CAPSULE DELAYED RELEASE 1 CAPS, AUDRA ORALLY TWICE DAILY, NOTES: 07/20/17699 TAKING TRAZODONE HCL 100 MG TABLET 1 TAB(S) ORALLY DAILY AT NIGHT, NOTES: 07/19/172299 TAKING METFORMIN HCL 1000 MG TABLET 1 TABLET WITH MEALS ORALLY TWICE A DAY, NOTES: 07/19/172199 TAKING GEMFIBROZIL 600 MG TABLET TAKE ONE TABLET BY MOUTH TWICE A DAY , NOTES: 07/20/17699 TAKING FERROUS SULFATE 325 (65 FE) MG TABLET DELAYED RELEASE 1 TABLET ORALLY TWICE DAILY, NOTES: 07/20/17699 TAKING FLUTICASONE PROPIONATE 50 MCG/ACT SUSPENSION 1 SPRAY IN EACH NOSTRIL NASALLY TWICE DAILY TAKING SINGULAIR 10 MG TABLET 1 TABLET IN THE EVENING ORALLY ONCE A DAY TAKING AUGMENTIN 500-125 MG TABLET 1 TABLET ORALLY THREE TIMES DAILY TAKING ONE TOUCH ULTRA BLUE STRIPS DIRECTED SUBCUTANEOUSLY DAILY, DX E11.9 TAKING MULTI FOR HER TABLET ORALLY ONCE DAILY TAKING PROBIOTIC CAPSULE ORALLY BID, NOTES: 01-18-17599 TAKING CALCIUM 600+D 600-400 MG-UNIT TABLET 1 TABLET WITH FOOD ORALLY TWICE DAILY, NOTES: NONE TAKING DOXYCYCLINE HYCLATE 100 MG TABLET 1 TABLET ORALLY EVERY 12 HRS TAKING PREDNISONE 20 MG TABLET 2 TABLET ORALLY ONCE A DAY MEDICATION LIST REVIEWED AND RECONCILED WITH THE PATIENT PAST MEDICAL HISTORY MDD SEVERE ENDOMETRIOSIS, S/P SUPRACERVICAL HYSTERECTOMY, BSO (DR. CHRIS MALIK, [facility]) LEIOMYOMA GERD -EGD/COLONOSCOPY 11/2013 DR HARDY WNL MIGRAINES (DR ARTEAGA) DM2 HTN HYPERLIPIDEMIA CHRONIC NECK/BACK PAIN - NEURO VIT D DEF MORBID OBESITY BLESSING, CPAP (NEURO) FATTY LIVER 05/24 US H/O ELEVATED LFTS DIABETIC NEUROPATHY INSOMNIA RHEUMOTOID ARTHRITIS FIBROMYALGIA ALLERGIES ASPIRIN: A CHILD: ALLERGY NAPROXEN: ITCHY: ALLERGY SURGICAL HISTORY C SECTION X 3 HYSTERECTOMY CHOLECYSTECTOMY APPENDECTOMY SOCIAL HISTORY GENERAL: TOBACCO USE ARE YOU A:FORMER SMOKER HOW LONG HAS IT BEEN SINCE YOU LAST SMOKED?> 10 YEARS LUNG CANCER SCREENING SMOKING STATUS:FORMER SMOKER BMI CARE GOAL FOLLOW-UP ABOVE NORMAL BMI FOLLOW-UPDIETARY MANAGEMENT EDUCATION, GUIDANCE, AND COUNSELING ALCOHOL SCREENING DID YOU HAVE A DRINK CONTAINING ALCOHOL IN THE PAST YEAR?YES HOW OFTEN DID YOU HAVE SIX OR MORE DRINKS ON ONE OCCASION IN THE PAST YEAR?NEVER (0 POINTS) HOW MANY DRINKS DID YOU HAVE ON A TYPICAL DAY WHEN YOU WERE DRINKING IN THE PAST YEAR?1 OR 2 (0 POINTS) HOW OFTEN DID YOU HAVE A DRINK CONTAINING ALCOHOL IN THE PAST YEAR?TWO TO FOUR TIMES A MONTH (2 POINTS) POINTS2 INTERPRETATIONNEGATIVE RECREATIONAL DRUG USE DRUG USE?NO CAFFEINE CAFFEINE USE?YES DRINKS GREEN TEA HIV / HEP-C SCREENING HIV TEST OFFERED TO PATIENT:YES DATE OFFERED:02/22/2017 TEST ACCEPTED:NO HEP-C TEST OFFERED TO PATIENT:YES DATE OFFERED:02/22/2017 REASON:PATIENT DECLINED TEST ACCEPTED:NO REASON:PATIENT DECLINED DIET: REGULAR. PROTESTANT [id number] OTHER LANGUAGE LANGUAGES SPOKEN:[place] LEARNING BARRIERS / SPECIAL NEEDS CHANGE FROM LAST VISIT?NO BARRIERS TO LEARNING?NO HEARING IMPAIRED?NO VISION IMPAIRED?YES COGNITIVELY IMPAIRED?NO :CORRECTIVE LENSES READINESS TO LEARN?YES LEARNING PREFERENCES?NO LEARNING CAPABILITIES PRESENT?YES EMOTIONAL BARRIERS?NO SPECIAL DEVICES?NO RAIL OPERATOR NEEDED?NO PAIN CLINIC PFS, CLERGY, PUBLIC HEALTH REFERRALS HAS THE PATIENT BEEN EDUCATED REGARDING HIS/HER PLAN OF CARE?YES HAS THE PATIENT BEEN EDUCATED REGARDING PAIN, THE RISK FOR PAIN, THE IMPORTANCE OF EFFECTIVE PAIN MANAGEMENT, AND THE PAIN ASSESSMENT PROCESS?YES PATIENT: ____. HOSPITALIZATION/MAJOR DIAGNOSTIC PROCEDURE SURGERIES REVIEW OF SYSTEMS REVIEWED BY: PROVIDER: SLY STOUT . CONSTITUTIONAL: ANY CHANGE IN YOUR MEDICAL CONDITION? NO . CHILLS NO . FEVER NO . INFECTION: DO YOU HAVE NEW INFECTIONS? NO . DO YOU HAVE HISTORY OF MRSA? NO . MUSCULOSKELETAL: ANY NEW PATTERNS OF PAIN OR NUMBNESS? NO . GASTROENTEROLOGY: ANY NEW CHANGE IN BOWEL CONTROL? NO . GENITOURINARY: ANY NEW CHANGE IN BLADDER CONTROL? NO . IS THERE A CHANCE YOU COULD BE ? NO . HEMATOLOGY/LYMPH: DO YOU TAKE ANY BLOOD THINNERS? (FOR EXAMPLE- COUMADIN, PLAVIX, AGGRENOX, PLATEL, PRADAXA, OR XARELTO) NO . WHEN WAS YOUR LAST DOSE? DATE: TIME: . NEUROLOGY: HAVE YOU FALLEN IN THE PAST 6 MONTHS? NO . ANY NEW EXTREMITY NUMBNESS OR WEAKNESS? NO . CARDIOLOGY: DO YOU HAVE A PACEMAKER OR DEFIBRILLATOR? NO . RESPIRATORY: HAVE YOU BEEN SICK IN THE PAST WEEK? NO . FEVER NO . FLU LIKE SYMPTOMS? NO . COUGH NO . INTEGUMENTARY: DO YOU HAVE ANY RASHES OR OPEN SORES? NO . ALLERGIC/IMMUNO: ARE YOU ALLERGIC TO SHELLFISH OR IV DYE? NO . ANY NEW ALLERGIES? NO . PSYCHIATRIC: DO YOU HAVE THOUGHTS OF HURTING YOURSELF OR SOMEONE ELSE? NO . ARE YOU ABUSED, NEGLECTED, OR IN AN UNSAFE ENVIRONMENT? NO . ENDOCRINOLOGY: ARE YOU DIABETIC? NO . OTHER: DO YOU NEED ANY PRESCRIPTIONS? NO . IF YES, PLEASE LIST: ____ . ANY NEW PROBLEMS WITH YOUR MEDICATIONS? NO . WHEN DID YOU LAST EAT? ____ . WHEN DID YOU LAST DRINK? ____ . WHAT DID YOU LAST DRINK? ____ . NAME OF PERSON DRIVING YOU HOME? ____ . DO YOU HAVE ANY OTHER QUESTIONS OR CONCERNS NO . VITAL SIGNS WT 198 LBS, HT 64 IN, BMI 33.98 INDEX, BP 143/76 MM HG, HR 99%, RR 18 /MIN, TEMP 98.1 F, OXYGEN SAT % 99%, NA INITIALS SC 15:07, REVIEWED BY: EM. EXAMINATION GENERAL EXAMINATION: LUNGS:LUNG SOUNDS ARE CLEAR. HEART:HEART RATE REGULAR. MUSCULOSKELETAL:TRIGGER POINTS: NOTED OVER R>L PARASPINAL REGION IN BOTH LUMBAR AND CERVICAL AREA.. MRIL/S [id number] -REVIEWED. ASSESSMENTS MYALGIA - M79.1 (PRIMARY) CERVICALGIA - M54.2 TREATMENT MYALGIA NOTES: CONTINUE CONSERVATIVE CARE FOR SEVERE FLARE UPS IN PAIN, PATIENT WAS ADVISED TO START A WALKING PROGRAM TO STRENGTHEN LUMBAR PARASPINAL MUSCLES AND IMPROVE MOBILITY. THEY WERE ADVISED THAT THIS WILL IMPROVE WEIGHT LOSS AND ALSO DEPRESSION/FIBROMYALGIA SYMPTOMS. ADVISED TO WALK 10 MINUTES EVERY OTHER DAY ON A FLAT SURFACE. EMPHASIZED THE IMPORTANCE OF DOING THIS CONSISTANTLY AND NOT SPORATICALLY TO AVOID INJURY. STRONG ADVISED NOT TO DO MORE THAN 10 MINUTES EVERY OTHER DSY FOR THE FIRST 4 WEEKS. PROCEDURE CODES FA211 ESTABILISHED PATIENT [facility] CHARGE DISPOSITION & COMMUNICATION FOLLOW UP 2 MONTHS ELECTRONICALLY SIGNED BY ARGELIA MORELAND ON 09/29/2017 AT 03:57 PM EST DISCLAIMER : THIS IS A VISIT SUMMARY EXTRACTED FROM THE [employer] CHART. IT IS NOT A COPY OF THE [facility] PROGRESS NOTE. MTDD
== END ==
LOC: M PAIN 14:45
PROVIDERS: ATTEND Nurse Practitioner Family
DX: M79.1 Myalgia (principal); M54.2 Cervicalgia; G89.29 Other chronic pain; E78.4 Other hyperlipidemia; E11.9 Type 2 diabetes mellitus without complications; I10 Essential (primary) hypertension; Z79.891 Long term (current) use of opiate analgesic; Z79.899 Other long term (current) drug therapy; Z79.84 Long term (current) use of oral hypoglycemic drugs; Z87.891 Personal history of nicotine dependence; Z88.8 Allergy status to other drugs, medicaments and biological substances

== ENCOUNTER → 2017-09-20 | Outpatient (CLI) | payer OTHER ==
--- NOTE | 2017-09-20 16:18 | REP ---
Abdominal series: Three views. History: Dysuria. Acute bilateral thoracic back pain. Comparison chest x-ray August 27, 2016. Findings: Upright chest radiograph is unremarkable. There is no evidence of infiltrate or free subdiaphragmatic air. Heart is not enlarged. Mediastinum is not widened. Supine and erect views of the abdomen demonstrate a normal bowel gas pattern with air and stool in a nondilated colon. There are clips in right upper quadrant post cholecystectomy. Psoas margins are intact. No abnormal calcification is seen. No mass or organomegaly is seen Impression: Clips in right upper quadrant post cholecystectomy. Otherwise no acute abnormality. Signed by Pratik Mendez MD 09/21/2017 02:43 P
== END ==
LOC: M ADAMS 11:16
PROVIDERS: ATTEND Physician Assistant Medical
DX: R30.0 Dysuria (principal); M54.5 Low back pain

== ENCOUNTER 2017-09-22 17:03 | Emergency (ER) | payer OTHER ==
[~2017-09-22] VITALS: Ht 162.6 cm; Wt 91.8 kg
[~2017-09-22 17:03] MED LIST changes: -CIPR-249 PO; -DULO1CAP3; -ENBR1INJ; -FLUTISP; -MONT10TA2; -SIMV40TA2; -VITA100067 PO
[2017-09-22] MEDS ORDERED: DULO1CAP3 (17:16)
[2017-09-22] MEDS ORDERED: SIMV40TA2 (17:16)
[2017-09-22] MEDS ORDERED: ENBR1INJ (17:16)
[2017-09-22] MEDS ORDERED: MONT10TA2 (17:16)
[2017-09-22] MEDS ORDERED: FLUTISP (17:16)
[2017-09-22] MEDS ORDERED: VITA100067 PO (17:16)
[2017-09-22 18:20] LABS: MUCUS, URINE RFX SMALL (NEGATIVE); SQUAM EPITHELIAL CELL UR AURFX 0 /HPF (0-6)
[2017-09-22 18:22] LABS: CONTROL LINE UCG INT CTR LINE PRESENT
[2017-09-22] MEDS ORDERED: KETOROLAC 30 MG/ML VIAL (J1885) IV ONE (18:30)
[2017-09-22] MEDS ORDERED: NS 1,000 ML IV ONE (18:30)
[2017-09-22 19:15] LABS: BASO % 0.5 % (0.0-1.0); EOS # 0.2 10^3/uL (0.0-0.50); EOS % 2.1 % (0.0-3.0); IMMATURE GRANULOCYTE % 0.2 % (0-0); LYMPH # 3.1 10^3/uL (1.5-4.5); LYMPH % 36.6 % (24.0-44.0); MEAN CORPUSCULAR HEMOGLOBIN 27.7 pg (27.0-33.0); MEAN CORPUSCULAR HGB CONC 32.7 g/dl (32.0-36.5); MEAN CORPUSCULAR VOLUME 84.6 fl (80.0-96.0); MONO # 0.8 10^3/uL (0.0-0.8); MONO % 9.1 % (0.0-5.0); NEUTROPHILS # 4.4 10^3/uL (1.8-7.7); NEUTROPHILS % 51.5 % (36.0-66.0); PLATELET COUNT, AUTOMATED 255 10^3/uL (150-450); RED CELL DISTRIBUTION WIDTH 13.7 % (11.5-14.5); WHITE BLOOD COUNT 8.6 10^3/uL (4.0-10.0)
[2017-09-22 19:39] LABS: ALBUMIN 4.1 GM/DL (3.2-5.2); ALBUMIN/GLOBULIN RATIO 1.05 (1.00-1.93); ALKALINE PHOSPHATASE 90 U/L (45-117); ALT/SGPT 22 U/L (12-78); ANION GAP 9 MEQ/L (8-16); AST/SGOT 24 U/L (7-37); BILIRUBIN,DIRECT < 0.1 MG/DL (0.0-0.2); BILIRUBIN,TOTAL 0.3 MG/DL (0.2-1.0); BLOOD UREA NITROGEN 11 MG/DL (7-18); CALCIUM LEVEL 8.8 MG/DL (8.5-10.1); CARBON DIOXIDE LEVEL 24 MEQ/L (21-32); CHLORIDE LEVEL 108 MEQ/L (98-107); GLOMERULAR FILTRATION RATE > 60.0 (>51); GLUCOSE, FASTING 85 MG/DL (70-105); POTASSIUM SERUM 3.9 MEQ/L (3.5-5.1); SODIUM LEVEL 141 MEQ/L (136-145)
--- NOTE | 2017-09-22 20:00 | REPUSA ---
CLINICAL HISTORY: Abdominal pain. TECHNIQUE: Multiple axial, sagittal and coronal CT images were obtained through the abdomen and pelvi s without administration of oral or IV contrast material. COMMENTS: The liver is of uniform attenuation without mass or defect. There is no intra or extrahepatic biliary ductal dilatation. The spleen is normal. The gallbladder is surgically absent. The pancreas is of n ormal contour and attenuation characteristics. There is no evidence of adrenal mass. The kidneys are normal in size, shape and configuration. No renal or ureteral calculi are identified. There is no hydroureter or hydronephrosis. There is no evidence for appendicitis. There is no bowel wall thickening. No evidence for small or la rge bowel obstruction. There is no evidence of abdominal ascites or lymphadenopathy. There is no evidence of intrinsic or extrinsic bladder mass. There is no pelvic ascites or lymphadeno david. Status post complete hysterectomy. Images of the lung bases show no evidence of pleural or parenchymal mass. There are no pleural effusi ons. The bony structures are free of lytic or blastic lesions. Multilevel degenerative changes are seen in volving the thoracolumbar spine. Scattered calcifications are seen involving the aorta and major branches compatible with atherosclero sis. IMPRESSION: No acute abdominal or pelvic pathology Thank you for your kind referral of this patient.
[2017-09-22] MEDS ORDERED: CIPR-249 PO (20:13)
[2017-09-22] MEDS ORDERED: CIPROFLOXACIN 500 MG TAB PO ONE (20:15)
[2017-09-22] MEDS ORDERED: CEFTRIAXONE SOD 1 GM in APPROPRIATE DILUENT 1 EA IV ONE (20:15)
[2017-09-22 20:19] VITALS: BP 122/67
== END 2017-09-22 21:03 | disposition home or self-care (01) ==
LOC: M ED 17:03
DX: N10 Acute pyelonephritis (principal); N30.00 Acute cystitis without hematuria; E11.9 Type 2 diabetes mellitus without complications; G47.33 Obstructive sleep apnea (adult) (pediatric); M06.9 Rheumatoid arthritis, unspecified; F17.210 Nicotine dependence, cigarettes, uncomplicated; Z79.899 Other long term (current) drug therapy; Z79.84 Long term (current) use of oral hypoglycemic drugs; Z88.8 Allergy status to other drugs, medicaments and biological substances; Z98.890 Other specified postprocedural states
CPT/HCPCS: 74176; 80048; 80076; 81001; 84703; 85025; 87040; 87088; 87186; 96374; 96375; 99284; J1885

== ENCOUNTER 2018-08-03 11:38 | Emergency (ER) | payer MEDICAID, OTHER ==
[2018-08-03 12:37] LABS: BASO % 0.3 % (0.0-1.0); EOS # 0.1 10^3/uL (0.0-0.50); EOS % 1.7 % (0.0-3.0); HEMATOCRIT 37.5 % (36.0-47.0); HEMOGLOBIN 12.7 g/dl (12.0-15.5); IMMATURE GRANULOCYTE % 0.2 % (0-3.0); LYMPH # 2.4 10^3/uL (1.5-4.5); LYMPH % 36.3 % (24.0-44.0); MEAN CORPUSCULAR HEMOGLOBIN 28.4 pg (27.0-33.0); MEAN CORPUSCULAR HGB CONC 33.9 g/dl (32.0-36.5); MEAN CORPUSCULAR VOLUME 83.9 fl (80.0-96.0); MONO # 0.4 10^3/uL (0.0-0.8); MONO % 6.8 % (0.0-5.0); NEUTROPHILS # 3.6 10^3/uL (1.8-7.7); NEUTROPHILS % 54.7 % (36.0-66.0); PLATELET COUNT, AUTOMATED 232 10^3/uL (150-450); RED BLOOD COUNT 4.47 10^6/uL (4.00-5.40); RED CELL DISTRIBUTION WIDTH 13.3 % (11.5-14.5); WHITE BLOOD COUNT 6.5 10^3/uL (4.0-10.0)
[2018-08-03 12:47] LABS: INR 1.04; PARTIAL THROMBOPLASTIN TIME 31.3 SECONDS (25.4-37.6); PROTHROMBIN TIME 13.7 SECONDS (12.1-14.4)
[2018-08-03] MEDS: MECLIZINE 25 MG TABLET PO (13:11)
[2018-08-03] MEDS: METOCLOPRAMIDE INJ 10MG/2ML VIAL (J2765) IV (13:11)
[2018-08-03 13:12] LABS: ANION GAP 10 MEQ/L (8-16); BLOOD UREA NITROGEN 12 MG/DL (7-18); CALCIUM LEVEL 9.1 MG/DL (8.5-10.1); CARBON DIOXIDE LEVEL 24 MEQ/L (21-32); CHLORIDE LEVEL 110 MEQ/L (98-107); CK-MB VALUE MASS < 1.0 NG/ML (<3.6); CPK CREATINE PHOSPHOKINASE 159 U/L (26-192); CREATININE FOR GFR 0.73 MG/DL (0.55-1.30); GLOMERULAR FILTRATION RATE > 60.0 (>51); GLUCOSE, FASTING 98 MG/DL (70-100); MB/CK RELATIVE INDEX 0.63 (< OR =4); POTASSIUM SERUM 3.9 MEQ/L (3.5-5.1); SODIUM LEVEL 144 MEQ/L (136-145); TROPONIN I < 0.02 NG/ML (< 0.10)
[2018-08-03] MEDS: NS 1,000 ML IV (13:12)
[2018-08-04 14:14] LABS: BEDSIDE GLUCOSE 123 MG/DL (70-105)
== END 2018-08-03 14:55 | disposition home or self-care (01) ==
LOC: M ED 11:38
DX: R42 Dizziness and giddiness (principal); H83.09 Labyrinthitis, unspecified ear; E11.9 Type 2 diabetes mellitus without complications; E78.5 Hyperlipidemia, unspecified; G43.909 Migraine, unspecified, not intractable, without status migrainosus; Z82.49 Family history of ischemic heart disease and other diseases of the circulatory system; Z79.899 Other long term (current) drug therapy; Z88.8 Allergy status to other drugs, medicaments and biological substances; F17.210 Nicotine dependence, cigarettes, uncomplicated
CPT/HCPCS: J2765

== ENCOUNTER → 2018-08-18 | Outpatient (REF) | payer OTHER | LOC: M SFHCADAM 13:24 | DX: R19.5 Other fecal abnormalities (principal) ==

== ENCOUNTER → 2019-06-26 | Outpatient (REF) | payer OTHER ==
[~2019-06-26] MED LIST changes: +CIPR-249 PO; -DULO1CAP2 PO; +DULO1CAP5 PO; +DULO1CAP6; +ENBR1INJ; +FLUTISP; -GABA-283 PO; +GABA-845 PO; -GEMF600T PO; +GEMF600T5 PO; +HYDR200T3; +MECL-68 PO; +MELO15TA28; +MONT10TA2; +SIMV40TA2; -TRAZ-136 PO; +TRAZ-163 PO; +VITA100067 PO; +ZONI100C2; +ZONI50CA3
[2019-06-26 20:40] LABS: BASO # 0.1 10^3/uL (0.0-0.2); BASO % 0.9 % (0.0-1.0); EOS # 0.2 10^3/uL (0.0-0.5); EOS % 4.5 % (0.0-3.0); HEMATOCRIT 37.9 % (36.0-47.0); HEMOGLOBIN 12.3 g/dl (12.0-15.5); LYMPH # 2.3 10^3/uL (1.5-5.0); LYMPH % 42.2 % (24.0-44.0); MEAN CORPUSCULAR HEMOGLOBIN 27.8 pg (27.0-33.0); MEAN CORPUSCULAR HGB CONC 32.5 g/dl (32.0-36.5); MEAN CORPUSCULAR VOLUME 85.7 fl (80.0-96.0); MONO # 0.6 10^3/uL (0.0-0.8); MONO % 10.9 % (0.0-5.0); NEUTROPHILS # 2.2 10^3/uL (1.5-8.5); NEUTROPHILS % 41.5 % (36.0-66.0); PLATELET COUNT, AUTOMATED 114 10^3/uL (150-450); RED BLOOD COUNT 4.42 10^6/uL (4.00-5.40); WHITE BLOOD COUNT 5.3 10^3/uL (4.0-10.0)
[2019-06-26 21:02] LABS: ALBUMIN 4.2 GM/DL (3.2-5.2); ALT/SGPT 47 U/L (12-78); BILIRUBIN,TOTAL 0.4 MG/DL (0.2-1.0); BLOOD UREA NITROGEN 12 MG/DL (7-18); CARBON DIOXIDE LEVEL 32 MEQ/L (21-32); CHLORIDE LEVEL 107 MEQ/L (98-107); CHOLESTEROL LEVEL 158 MG/DL (<200); CHOLESTEROL RISK RATIO 2.468 (<5); CREATININE FOR GFR 0.85 MG/DL (0.55-1.30); FERRITIN 7 NG/ML (8-252); FREE T4 0.74 NG/DL (0.76-1.46); GLOMERULAR FILTRATION RATE > 60.0 (>51); GLUCOSE, FASTING 109 MG/DL (70-100); HDL CHOLESTEROL 64 MG/DL (>40); IRON (FE) 55 UG/DL (50-170); LDL CHOLESTEROL 42 MG/DL (<100); NON-HDL-C 94 MG/DL; PERCENT SATURATION 10.8 % (13.2-45.0); POTASSIUM SERUM 4.4 MEQ/L (3.5-5.1); SODIUM LEVEL 143 MEQ/L (136-145); TOTAL 25(OH) VITAMIN D 20.2 NG/ML (30.0-100.0); TOTAL IRON BINDING CAPACITY 511 UG/DL (250-450); TOTAL PROTEIN 6.8 GM/DL (6.4-8.2); TRIGLYCERIDES LEVEL 258 MG/DL (<150); VITAMIN B12 LEVEL 1283 PG/ML
[2019-06-26 21:49] LABS: HEMOGLOBIN A1c 5.9 %
== END ==
LOC: M SFHCADAM 13:29
PROVIDERS: ATTEND Physician Assistant Medical
DX: E11.9 Type 2 diabetes mellitus without complications (principal); E55.9 Vitamin D deficiency, unspecified; K75.81 Nonalcoholic steatohepatitis (NASH); E78.49 Other hyperlipidemia

== ENCOUNTER → 2019-10-25 | Outpatient (CLI) | payer OTHER, SELFPAY ==
[~2019-10-25] MED LIST changes: -MECL-68 PO; +MECL1TAB31 PO; -SIMV40TA2; +SIMV40TA20; -TRAZ-163 PO; +TRAZ-257 PO; +ZONI100C17; -ZONI100C2; +ZONI50CA11; -ZONI50CA3
--- NOTE | 2019-10-26 16:20 | REPMRS ---
Patient History The patient states she had a clinical breast exam in 2019. Family history of bladder cancer in mother, breast cancer in maternal aunt, bladder cancer in maternal uncle, bladder cancer in paternal grandmother. Digital Woman Screen Mammo: October 25, 2019 - Exam #: [id number] Bilateral CC and MLO view(s) were taken. Technologist: Aretha Otto, Technologist Prior study comparison: February 17, 2017, bilateral digital mammo screening bilat, performed at [facility]. November 28, 2014, bilateral digital mammo screening bilat, performed at [facility]. November 21, 2013, bilateral digital mammo screening bilat, performed at [facility]. FINDINGS: The breast tissue is heterogeneously dense. This may lower the sensitivity of mammography. There is a moderate amount of heterogeneously dense fibroglandular tissue which is fairly symmetric. There is no interval development of dominant mass, architectural distortion, or grouped microcalcification typical of malignancy. There has been no change in the appearance of the mammogram from the prior studies. 3-D tomosynthesis shows no additional findings. Assessment: BI-RADS/ACR category 1 mammogram. Negative Mammogram. Recommendation Routine screening mammogram of both breasts in 1 year (for women over age 40). This patient's Lifetime Breast Cancer RIsk is estimated at 12.6 %. This mammogram was interpreted with the aid of an FDA-approved computer-aided dectection system. Electronically Signed By: Heber Mendez MD 10/26/19 [id number]
== END ==
LOC: M WHC 10:36
PROVIDERS: ATTEND Nurse Practitioner Family
DX: Z12.31 Encounter for screening mammogram for malignant neoplasm of breast (principal)

== ENCOUNTER → 2019-10-25 | Outpatient (CLI) | payer OTHER | LOC: M PLALAB 11:52 | PROVIDERS: ATTEND Nurse Practitioner Family | DX: Z13.79 Encounter for other screening for genetic and chromosomal anomalies (principal) ==

== ENCOUNTER → 2019-12-11 | Outpatient (REF) | payer OTHER ==
[~2019-12-11] MED LIST changes: -MONT10TA2; +MONT10TA4
[2019-12-11 12:57] LABS: BASO % 0.8 % (0.0-1.0); EOS # 0.1 10^3/uL (0.0-0.5); EOS % 3.3 % (0.0-3.0); HEMATOCRIT 39.8 % (36.0-47.0); HEMOGLOBIN 13.2 g/dl (12.0-15.5); LYMPH # 1.9 10^3/uL (1.5-5.0); LYMPH % 46.6 % (24.0-44.0); MEAN CORPUSCULAR HEMOGLOBIN 29.4 pg (27.0-33.0); MEAN CORPUSCULAR HGB CONC 33.2 g/dl (32.0-36.5); MEAN CORPUSCULAR VOLUME 88.6 fl (80.0-96.0); MONO # 0.4 10^3/uL (0.0-0.8); MONO % 8.8 % (0.0-5.0); NEUTROPHILS # 1.6 10^3/uL (1.5-8.5); NEUTROPHILS % 40.2 % (36.0-66.0); PLATELET COUNT, AUTOMATED 172 10^3/uL (150-450); RED BLOOD COUNT 4.49 10^6/uL (4.00-5.40)
[2019-12-11 13:03] LABS: ALBUMIN 4.1 GM/DL (3.2-5.2); ALT/SGPT 59 U/L (12-78); BILIRUBIN,TOTAL 0.6 MG/DL (0.2-1.0); BLOOD UREA NITROGEN 10 MG/DL (7-18); CALCIUM LEVEL 9.2 MG/DL (8.5-10.1); CARBON DIOXIDE LEVEL 31 MEQ/L (21-32); CHLORIDE LEVEL 107 MEQ/L (98-107); CHOLESTEROL LEVEL 180 MG/DL (<200); CHOLESTEROL RISK RATIO 3.333 (<5); CREATININE FOR GFR 0.76 MG/DL (0.55-1.30); FERRITIN 21 NG/ML (8-252); FOLATE 10.8 NG/ML; GLOMERULAR FILTRATION RATE > 60.0 (>51); GLUCOSE, FASTING 135 MG/DL (70-100); HDL CHOLESTEROL 54 MG/DL (>40); IRON (FE) 85 UG/DL (50-170); LDL CHOLESTEROL 87 MG/DL (<100); NON-HDL-C 126 MG/DL; PERCENT SATURATION 20.1 % (13.2-45.0); POTASSIUM SERUM 4.1 MEQ/L (3.5-5.1); SODIUM LEVEL 141 MEQ/L (136-145); TOTAL 25(OH) VITAMIN D 25.6 NG/ML (30.0-100.0); TOTAL IRON BINDING CAPACITY 422 UG/DL (250-450); TOTAL PROTEIN 6.9 GM/DL (6.4-8.2); TRIGLYCERIDES LEVEL 193 MG/DL (<150); VITAMIN B12 LEVEL 530 PG/ML
[2019-12-11 13:30] LABS: MALB URINE SIEMENS 14.6 MG/L; MAU/CREAT RATIO 7.3 MCG/MG (0.0-30.0)
[2019-12-11 16:40] LABS: HEMOGLOBIN A1c 5.9 %
== END ==
LOC: M SFHCADAM 09:47
PROVIDERS: ATTEND Physician Assistant Medical
DX: E55.9 Vitamin D deficiency, unspecified (principal); D50.8 Other iron deficiency anemias; E11.9 Type 2 diabetes mellitus without complications

== ENCOUNTER → 2019-12-11 | Outpatient (CLI) | payer OTHER ==
--- NOTE | 2019-12-11 11:21 | REP ---
RIGHT SHOULDER, THREE VIEWS: There is no evidence of an acute fracture, dislocation or intrinsic bone disease. There is minor spurring of the inferior bony glenoid. IMPRESSION: No fracture or dislocation. There is minor spurring of the inferior bony glenoid. Electronically Signed by Brennan Argueta MD 12/11/2019 07:53 P
== END ==
LOC: M ADAMS 09:58
PROVIDERS: ATTEND Physician Assistant Medical
DX: M25.511 Pain in right shoulder (principal)

== ENCOUNTER 2020-01-04 15:03 | Emergency (ER) | payer OTHER ==
[~2020-01-04] VITALS: Ht 160 cm; Wt 100.9 kg
[2020-01-04] MEDS ORDERED: SULF1TAB93 (15:12)
[2020-01-04] MEDS ORDERED: [UNRECOGNIZED DRUG - CODE] (15:14)
[2020-01-04] MEDS ORDERED: NS 500 ML IV ONE (15:45)
[2020-01-04] MEDS ORDERED: ISOVUE-370 76% 100ML VIAL (Q9967) As Ordered ONE (16:08)
[2020-01-04 16:13] LABS: BASO # 0.1 10^3/uL (0.0-0.2); BASO % 0.6 % (0.0-1.0); EOS # 0.4 10^3/uL (0.0-0.5); EOS % 3.8 % (0.0-3.0); LYMPH # 2.9 10^3/uL (1.5-5.0); LYMPH % 29.4 % (24.0-44.0); MEAN CORPUSCULAR HEMOGLOBIN 29.3 pg (27.0-33.0); MEAN CORPUSCULAR HGB CONC 33.3 g/dl (32.0-36.5); MEAN CORPUSCULAR VOLUME 87.9 fl (80.0-96.0); MONO # 0.9 10^3/uL (0.0-0.8); MONO % 8.8 % (0.0-5.0); NEUTROPHILS # 5.7 10^3/uL (1.5-8.5); NEUTROPHILS % 56.7 % (36.0-66.0); PLATELET COUNT, AUTOMATED 191 10^3/uL (150-450); RED BLOOD COUNT 5.12 10^6/uL (4.00-5.40)
--- NOTE | 2020-01-04 16:43 | REP ---
CT ORBITS WITH IV CONTRAST: CT orbits performed following the intravenous administration of 75 mL Isovue-370. Sagittal and coronal reconstruction images are performed. Ill-defined subcutaneous density is seen in the left periorbital region consistent with preseptal left periorbital cellulitis. There is no post septal involvement. No abscess collection is seen. Globes are intact. Extraocular muscles are symmetrical in appearance. Optic nerves are symmetrical in appearance with no abnormality. The retroconal fat demonstrates no inflammatory change. There is moderate fluid in the left maxillary sinus consistent with sinusitis. No other sinus opacification is seen. Mastoid air cells are well aerated and clear with no abnormal opacification. IMPRESSION: Left periorbital preseptal cellulitis. No abscess. Left maxillary sinusitis. Electronically Signed by Brennan Argueta MD 01/04/2020 04:48 P
[2020-01-04] MEDS ORDERED: DOXY100C37 PO (16:50)
[2020-01-04] MEDS ORDERED: BENA25CA4 PO (16:50)
[2020-01-04 17:30] VITALS: BP 146/78
[2020-01-04 17:38] LABS: ERYTHROCYTE SEDIMENTATION RATE 2 mm/hr (0-30)
== END 2020-01-04 17:31 | disposition home or self-care (01) ==
LOC: M ED 15:03
DX: L03.211 Cellulitis of face (principal); H05.222 Edema of left orbit; H60.12 Cellulitis of left external ear; G43.909 Migraine, unspecified, not intractable, without status migrainosus; E78.00 Pure hypercholesterolemia, unspecified; K21.9 Gastro-esophageal reflux disease without esophagitis; M06.9 Rheumatoid arthritis, unspecified; F32.9 Major depressive disorder, single episode, unspecified; F17.200 Nicotine dependence, unspecified, uncomplicated; Z79.899 Other long term (current) drug therapy; Z79.2 Long term (current) use of antibiotics; Z88.6 Allergy status to analgesic agent; Z88.8 Allergy status to other drugs, medicaments and biological substances
CPT/HCPCS: 70481; 80047; 85025; 85652; 86140; 96360; 99283; Q9967

== ENCOUNTER → 2020-06-12 | Outpatient (REF) | payer OTHER ==
[~2020-06-12] MED LIST changes: +BENA25CA4 PO; +DOXY100C37 PO; +SULF1TAB93; +[UNRECOGNIZED DRUG - CODE]
[2020-06-12 18:17] LABS: BASO % 0.6 % (0.0-1.0); EOS # 0.1 10^3/uL (0.0-0.5); EOS % 1.7 % (0.0-3.0); HEMATOCRIT 42.1 % (36.0-47.0); HEMOGLOBIN 14.3 g/dl (12.0-15.5); LYMPH % 36.8 % (24.0-44.0); MEAN CORPUSCULAR HEMOGLOBIN 29.1 pg (27.0-33.0); MEAN CORPUSCULAR VOLUME 85.6 fl (80.0-96.0); MONO # 0.6 10^3/uL (0.0-0.8); MONO % 10.5 % (0.0-5.0); NEUTROPHILS # 2.7 10^3/uL (1.5-8.5); NEUTROPHILS % 50.2 % (36.0-66.0); PLATELET COUNT, AUTOMATED 166 10^3/uL (150-450); RED BLOOD COUNT 4.92 10^6/uL (4.00-5.40); WHITE BLOOD COUNT 5.4 10^3/uL (4.0-10.0)
[2020-06-12 18:45] LABS: ALBUMIN 4.4 GM/DL (3.2-5.2); ALT/SGPT 75 U/L (12-78); BILIRUBIN,TOTAL 0.6 MG/DL (0.2-1.0); BLOOD UREA NITROGEN 6 MG/DL (7-18); CALCIUM LEVEL 8.9 MG/DL (8.5-10.1); CARBON DIOXIDE LEVEL 27 MEQ/L (21-32); CHLORIDE LEVEL 106 MEQ/L (98-107); CHOLESTEROL LEVEL 156 MG/DL (<200); CHOLESTEROL RISK RATIO 2.943 (<5); CREATININE FOR GFR 0.79 MG/DL (0.55-1.30); GLOMERULAR FILTRATION RATE > 60.0 (>51); GLUCOSE, FASTING 120 MG/DL (70-100); HDL CHOLESTEROL 53 MG/DL (>40); LDL CHOLESTEROL 74 MG/DL (<100); NON-HDL-C 103 MG/DL; POTASSIUM SERUM 3.9 MEQ/L (3.5-5.1); SODIUM LEVEL 139 MEQ/L (136-145); THYROID STIMULATING HORMONE 0.717 uIU/ML (0.358-3.740); TOTAL 25(OH) VITAMIN D 28.4 NG/ML (30.0-100.0); TOTAL PROTEIN 7.3 GM/DL (6.4-8.2); TRIGLYCERIDES LEVEL 145 MG/DL (<150)
[2020-06-12 19:34] LABS: HEMOGLOBIN A1c 6.8 %
== END ==
LOC: M SFHCADAM 17:31
PROVIDERS: ATTEND Physician Assistant Medical
DX: E11.9 Type 2 diabetes mellitus without complications (principal); I10 Essential (primary) hypertension; E55.9 Vitamin D deficiency, unspecified; E78.2 Mixed hyperlipidemia

== ENCOUNTER → 2020-11-19 | Outpatient (CLI) | payer OTHER ==
[~2020-11-19] MED LIST changes: +MONT10TA10; -MONT10TA4
--- NOTE | 2020-11-19 11:52 | REPMRS ---
Patient History The patient states she had a clinical breast exam in November 2020. Family history of unknown cancer in mother, breast cancer in maternal aunt, unknown cancer in maternal uncle, unknown cancer in paternal grandmother. Digital Woman Screen Mammo: November 19, 2020 - Exam #: [id number] Bilateral CC and MLO view(s) were taken. Technologist: Liat Knight, Technologist Prior study comparison: October 25, 2019, bilateral digital woman screen mammo performed at [facility]. February 17, 2017, bilateral digital mammo screening bilat, performed at [facility]. November 28, 2014, bilateral digital mammo screening bilat, performed at [facility]. FINDINGS: The breast tissue is heterogeneously dense. This may lower the sensitivity of mammography. The Volpara volumetric breast density category is: C. There is a moderate amount of heterogeneously dense fibroglandular tissue which is fairly symmetric. There is no interval development of dominant mass, architectural distortion, or grouped microcalcification typical of malignancy. There has been no change in the appearance of the mammogram from the prior studies. 3-D tomosynthesis shows no additional findings. Assessment: BI-RADS/ACR category 1 mammogram. Negative Mammogram. Recommendation Routine screening mammogram of both breasts in 1 year (for women over age 40). This patient's [facility] Lifetime Breast Cancer RIsk is estimated at 12.3 %. This mammogram was interpreted with the aid of an FDA-approved computer-aided dectection system. Electronically Signed By: Heber Mendez MD 11/19/20 [id number]
== END ==
LOC: M WHC 09:57
PROVIDERS: ATTEND Nurse Practitioner Family
DX: Z12.31 Encounter for screening mammogram for malignant neoplasm of breast (principal)

== ENCOUNTER → 2021-01-29 | Outpatient (CLI) | payer OTHER | LOC: M LABSMTC 12:56 | PROVIDERS: ATTEND Pediatrics | DX: Z11.52 Encounter for screening for COVID-19 (principal) ==

== ENCOUNTER 2021-03-13 12:32 | Emergency (ER) | payer OTHER ==
[~2021-03-13] VITALS: Ht 162.6 cm; Wt 103.5 kg
[~2021-03-13 12:32] MED LIST changes: +BACTDSTA; +GABA-283 PO; -GABA-845 PO; -SULF1TAB93
[2021-03-13 12:33] VITALS: BP 168/83
[2021-03-13] MEDS ORDERED: OMEP-221 (12:43)
--- NOTE | 2021-03-13 14:33 | REP ---
INDICATION: fall pain COMPARISON: 07/31/2015 TECHNIQUE: Five views FINDINGS: The compartments are symmetric and relatively well maintained. There is no acute fracture or destructive osseous lesion. There is no significant change compared to the prior exam. IMPRESSION: As above. <Electronically signed by Kaden Frias > 03/13/21 [id number]
== END 2021-03-13 15:31 | disposition home or self-care (01) ==
LOC: M ED 12:32
DX: S80.01XA Contusion of right knee, initial encounter (principal); S30.1XXA Contusion of abdominal wall, initial encounter; S40.021A Contusion of right upper arm, initial encounter; W18.2XXA Fall in (into) shower or empty bathtub, initial encounter; Y92.002 Bathroom of unspecified non-institutional (private) residence as the place of occurrence of the external cause; Y93.9 Activity, unspecified; Y99.9 Unspecified external cause status; G43.909 Migraine, unspecified, not intractable, without status migrainosus; K21.9 Gastro-esophageal reflux disease without esophagitis; M06.9 Rheumatoid arthritis, unspecified; Z88.6 Allergy status to analgesic agent; Z79.899 Other long term (current) drug therapy

== ENCOUNTER → 2021-08-26 | Outpatient (REF) | payer OTHER ==
[~2021-08-26] MED LIST changes: +DOXY-443 PO; -DOXY100C37 PO; +OMEP-221
[2021-08-26 12:39] LABS: HEMOGLOBIN 12.7 g/dl (12.0-15.5); MEAN CORPUSCULAR HGB CONC 32.6 g/dl (32.0-36.5); MEAN CORPUSCULAR VOLUME 86.1 fl (80.0-96.0); PLATELET COUNT, AUTOMATED 213 10^3/uL (150-450); RED BLOOD COUNT 4.53 10^6/uL (4.00-5.40); WHITE BLOOD COUNT 5.5 10^3/uL (4.0-10.0)
[2021-08-26 12:53] LABS: HEMOGLOBIN A1c 7.2 %
[2021-08-26 13:15] LABS: ALBUMIN 3.8 GM/DL (3.2-5.2); ALT/SGPT 51 U/L (12-78); BILIRUBIN,TOTAL 0.3 MG/DL (0.2-1.0); BLOOD UREA NITROGEN 8 MG/DL (7-18); C REACTIVE PROTEIN QUANTITATIV 0.53 MG/DL (0.00-0.30); CALCIUM LEVEL 9.5 MG/DL (8.5-10.1); CARBON DIOXIDE LEVEL 30 MEQ/L (21-32); CHLORIDE LEVEL 107 MEQ/L (98-107); GLOMERULAR FILTRATION RATE > 60.0 (>51); GLUCOSE, FASTING 147 MG/DL (70-100); POTASSIUM SERUM 4.7 MEQ/L (3.5-5.1); SODIUM LEVEL 142 MEQ/L (136-145); TOTAL PROTEIN 6.7 GM/DL (6.4-8.2)
== END ==
LOC: M SFHCADAM 08:56
PROVIDERS: ATTEND Family Medicine
DX: R53.82 Chronic fatigue, unspecified (principal); U09.9 Post COVID-19 condition, unspecified; E11.9 Type 2 diabetes mellitus without complications

== ENCOUNTER → 2021-08-26 | Outpatient (CLI) | payer OTHER ==
--- NOTE | 2021-08-26 10:04 | REP ---
INDICATION: CHRONIC FATIGUE, POST COVID19 CONDITION UNSPECIFIED COMPARISON: 08/03/2018 TECHNIQUE: PA and lateral. FINDINGS: The mediastinum and cardiac silhouette are normal. The lung parekh are clear and without acute consolidation, effusion, or pneumothorax. The skeletal structures are intact and normal. IMPRESSION: No acute cardiopulmonary process. <Electronically signed by Maxwell Campo > 08/26/21 1000
== END ==
LOC: M ADAMS 09:18
PROVIDERS: ATTEND Family Medicine
DX: R53.82 Chronic fatigue, unspecified (principal); U09.9 Post COVID-19 condition, unspecified

== ENCOUNTER 2022-03-29 12:18 | Emergency (ER) | payer OTHER ==
[~2022-03-29] VITALS: Ht 162.6 cm; Wt 104.5 kg
[~2022-03-29 12:18] MED LIST changes: -MONT10TA10; +MONT10TA97; -OMEP-221; +OMEP40CA5; -ZONI100C17; +ZONI100C67
[2022-03-29] MEDS ORDERED: LEVOTAB10 (12:36)
[2022-03-29 13:22] LABS: BASO # 0.1 10^3/uL (0.0-0.2); BASO % 0.9 % (0.0-1.0); EOS # 0.2 10^3/uL (0.0-0.5); EOS % 3.1 % (0.0-3.0); HEMOGLOBIN 13.2 g/dl (12.0-15.5); LYMPH # 2.2 10^3/uL (1.5-5.0); LYMPH % 37.9 % (24.0-44.0); MEAN CORPUSCULAR HEMOGLOBIN 28.5 pg (27.0-33.0); MEAN CORPUSCULAR VOLUME 86.4 fl (80.0-96.0); MONO # 0.5 10^3/uL (0.0-0.8); MONO % 8.4 % (2.0-8.0); NEUTROPHILS # 2.8 10^3/uL (1.5-8.5); NEUTROPHILS % 49.5 % (36.0-66.0); PLATELET COUNT, AUTOMATED 131 10^3/uL (150-450); RED BLOOD COUNT 4.63 10^6/uL (4.00-5.40); WHITE BLOOD COUNT 5.7 10^3/uL (4.0-10.0)
[2022-03-29] MEDS ORDERED: ISOVUE-370 76% 100ML VIAL As Ordered ONE (13:23)
[2022-03-29 13:32] LABS: INR 1.02; PROTHROMBIN TIME 13.8 SECONDS (12.7-14.5)
[2022-03-29 13:33] LABS: PARTIAL THROMBOPLASTIN TIME 25.4 SECONDS (25.9-37.0)
[2022-03-29 13:50] LABS: ALBUMIN 4.1 GM/DL (3.2-5.2); BILIRUBIN,DIRECT 0.2 MG/DL (0.0-0.2); BILIRUBIN,TOTAL 0.5 MG/DL (0.2-1.0); TOTAL PROTEIN 6.9 GM/DL (6.4-8.2)
[2022-03-29] MEDS ORDERED: NS 1,000 ML IV ONE (14:10)
[2022-03-29 17:30] VITALS: BP 175/82
== END 2022-03-29 17:33 | disposition home or self-care (01) ==
LOC: M ED 12:18
DX: K62.5 Hemorrhage of anus and rectum (principal); F17.200 Nicotine dependence, unspecified, uncomplicated; Z88.6 Allergy status to analgesic agent
CPT/HCPCS: 74177; 80047; 80076; 85025; 85610; 85730; 86850; 86900; 86901; 93041; 94760; 96360; 96361; 99285; Q9967

== ENCOUNTER → 2022-05-06 | Outpatient (CLI) | payer OTHER ==
[~2022-05-06] MED LIST changes: -FLUTISP; +FLUTISP NARES; +LEVOTAB10 PO; -MONT10TA97; +MONT10TA97 PO; -OMEP40CA5; +OMEP40CA5 PO; -SIMV40TA20; +SIMV40TA20 PO; +XELJ5TAB PO
== END ==
LOC: M LABSMTC 09:17
PROVIDERS: ATTEND Anesthesiology
DX: Z20.822 Contact with and (suspected) exposure to COVID-19 (principal)

== ENCOUNTER → 2022-05-07 | Outpatient (CLI) | payer OTHER ==
[2022-05-07 17:32] LABS: ALBUMIN 3.9 GM/DL (3.2-5.2); ALT/SGPT 72 U/L (12-78); BILIRUBIN,DIRECT 0.1 MG/DL (0.0-0.2); BILIRUBIN,TOTAL 0.4 MG/DL (0.2-1.0); IRON (FE) 75 UG/DL (50-170); PERCENT SATURATION 17.6 % (13.2-45.0); TOTAL IRON BINDING CAPACITY 425 UG/DL (250-450)
[2022-05-07 18:24] LABS: HEPATITIS B SURFACE ANTIGEN NEGATIVE (NEGATIVE)
[2022-05-07 18:50] LABS: HEPATITIS C VIRUS ABY INDEX < 0.0 INDEX (<0.8)
[2022-05-07 18:51] LABS: HEPATITIS B CORE ANTIBODY IGM NEGATIVE (NEGATIVE)
[2022-05-11 16:08] LABS: ANCA-ATYPICAL <1:20 titer (Neg:<1:20); ANTI-MITOCHONDRIAL ANTIBODY <20.0 Units (0.0-20.0); ANTINUCLEAR ANTIBODIES DIRECT Negative (Negative); CYTOPLASMIC NEUTROP AB ANCA-C <1:20 titer (Neg:<1:20); LIVER-KIDNEY MICROSOMAL ABY <20.1 Units (0.0-20.0); PERINUCLEAR AB ANCA-P <1:20 titer (Neg:<1:20)
== END ==
LOC: M ADAMS 10:40
PROVIDERS: ATTEND Internal Medicine Gastroenterology
DX: K62.5 Hemorrhage of anus and rectum (principal)

== ENCOUNTER 2022-05-11 08:45 | Day surgery (SDC) | payer OTHER ==
[~2022-05-11] VITALS: Ht 162.6 cm; Wt 102.2 kg
[~2022-05-11 08:45] MED LIST changes: +NS 1,000 ML IV ONE
[2022-05-11] MEDS ORDERED: fentaNYL 100 MCG/2 ML INJECTION As Ordered ONE (09:19)
[2022-05-11] MEDS ORDERED: LIDOCAINE 2% 100MG/5ML SDV (FOR ANES.) As Ordered ONE (09:52)
[2022-05-11] MEDS ORDERED: propofoL 200 MG/20 ML VIAL As Ordered ONE (09:52)
[2022-05-11 10:25] VITALS: BP 178/81
== END 2022-05-11 10:27 | disposition home or self-care (01) ==
LOC: M OPP 08:45
PROVIDERS: ATTEND Internal Medicine Gastroenterology
DX: R10.32 Left lower quadrant pain (principal); R10.13 Epigastric pain; R11.0 Nausea; Q43.8 Other specified congenital malformations of intestine; K64.8 Other hemorrhoids; R19.7 Diarrhea, unspecified; K21.9 Gastro-esophageal reflux disease without esophagitis; M06.9 Rheumatoid arthritis, unspecified; F32.A Depression, unspecified; G43.909 Migraine, unspecified, not intractable, without status migrainosus; J45.909 Unspecified asthma, uncomplicated; G47.30 Sleep apnea, unspecified; D50.9 Iron deficiency anemia, unspecified; F17.210 Nicotine dependence, cigarettes, uncomplicated; Z88.6 Allergy status to analgesic agent; Z79.899 Other long term (current) drug therapy; Z80.52 Family history of malignant neoplasm of bladder
CPT/HCPCS: 43235; 45378; J3010

== ENCOUNTER → 2023-06-09 | Outpatient (REF) | payer OTHER ==
[~2023-06-09] MED LIST changes: +FLUT50SP17 NARES; -FLUTISP NARES; -GABA-283 PO; +GABA-284 PO; -HYDR200T3; +HYDR200T46; -NS 1,000 ML IV ONE
== END ==
LOC: M WUC 21:04
PROVIDERS: ATTEND Student in an Organized Health Care Education/Training Program
DX: M54.50 Low back pain, unspecified (principal)

== ENCOUNTER → 2023-06-10 | Outpatient (CLI) | payer OTHER ==
[~2023-06-10] MED LIST changes: +MECL-209 PO; -MECL1TAB31 PO
[2023-06-10 13:21] LABS: HEMOGLOBIN 12.6 g/dl (12.0-15.5); MEAN CORPUSCULAR HEMOGLOBIN 26.6 pg (27.0-33.0); MEAN CORPUSCULAR HGB CONC 32.3 g/dl (32.0-36.5); MEAN CORPUSCULAR VOLUME 82.5 fl (80.0-96.0); PLATELET COUNT, AUTOMATED 192 10^3/uL (150-450); RED BLOOD COUNT 4.73 10^6/uL (4.00-5.40); WHITE BLOOD COUNT 7.5 10^3/uL (4.0-10.0)
[2023-06-10 13:44] LABS: ALBUMIN 3.7 G/DL (3.2-5.2); ALKALINE PHOSPHATASE 129 U/L (46-116); ALT/SGPT 49 U/L (7.0-40); AST/SGOT 27 U/L (<34); BILIRUBIN,TOTAL 0.3 MG/DL (0.3-1.2); BLOOD UREA NITROGEN 7 MG/DL (9-23); CALCIUM LEVEL 8.8 MG/DL (8.5-10.1); CARBON DIOXIDE LEVEL 32 MMOL/L (20-31); CHLORIDE LEVEL 102 MMOL/L (98-107); CREATININE FOR GFR 0.72 MG/DL (0.55-1.30); GLOMERULAR FILTRATION RATE > 60.0 (>51); GLUCOSE, FASTING 268 MG/DL (60-100); POTASSIUM SERUM 4.3 MMOL/L (3.5-5.1); SODIUM LEVEL 139 MMOL/L (136-145); TOTAL PROTEIN 6.7 G/DL (5.7-8.2)
[2023-06-10 13:45] LABS: HEMOGLOBIN A1c 9.8 % (4.0-6.0)
== END ==
LOC: M LAB 12:10
PROVIDERS: ATTEND Student in an Organized Health Care Education/Training Program
DX: R73.9 Hyperglycemia, unspecified (principal)

== ENCOUNTER → 2023-12-22 | Outpatient (REF) | payer OTHER ==
[~2023-12-22] MED LIST changes: -FLUT50SP17 NARES; +FLUTISP NARES
[2023-12-22 16:48] LABS: ALBUMIN 3.8 G/DL (3.2-5.2); ALKALINE PHOSPHATASE 98 U/L (46-116); ALT/SGPT 22 U/L (7.0-40); AST/SGOT 23 U/L (<34); BILIRUBIN,TOTAL 0.3 MG/DL (0.3-1.2); BLOOD UREA NITROGEN 10 MG/DL (9-23); CALCIUM LEVEL 9.1 MG/DL (8.5-10.1); CARBON DIOXIDE LEVEL 30 MMOL/L (20-31); CHLORIDE LEVEL 109 MMOL/L (98-107); CHOLESTEROL LEVEL 124 MG/DL (<200); CHOLESTEROL RISK RATIO 2.45 (<5); GLOMERULAR FILTRATION RATE > 60.0 (>51); GLUCOSE, FASTING 98 MG/DL (60-100); HDL CHOLESTEROL 50.5 MG/DL (>40); LDL CHOLESTEROL 53.5 MG/DL (<100); NON-HDL-C 73.5 MG/DL; POTASSIUM SERUM 4.3 MMOL/L (3.5-5.1); SODIUM LEVEL 142 MMOL/L (136-145); TOTAL PROTEIN 6.5 G/DL (5.7-8.2); TRIGLYCERIDES LEVEL 100 MG/DL (<150)
[2023-12-22 17:37] LABS: HEMOGLOBIN A1c 5.6 % (4.0-6.0)
[2023-12-22 17:39] LABS: CREATININE, URINE 89.5 MG/DL; MALB URINE SIEMENS < 3.0 MG/L; MAU/CREAT RATIO 3.3 MCG/MG (0.0-30.0)
== END ==
LOC: M SFHCADAM 11:59
PROVIDERS: ATTEND Physician Assistant Medical
DX: E11.65 Type 2 diabetes mellitus with hyperglycemia (principal); I10 Essential (primary) hypertension

== ENCOUNTER → 2024-01-26 | Outpatient (CLI) | payer OTHER | LOC: M SOG 10:00 | PROVIDERS: ATTEND Physician Assistant | DX: M25.511 Pain in right shoulder (principal) ==

== ENCOUNTER 2024-02-20 10:23 | Day surgery (SDC) | payer OTHER ==
[~2024-02-20] VITALS: Ht 162.6 cm; Wt 93.9 kg
[2024-02-20] MEDS: BACITRACIN OINTMENT 30GM TUBE As Ordered ONE (10:20)
[~2024-02-20 10:23] MED LIST changes: +DOXY-323 PO; -DOXY-443 PO; +KETOROLAC 60MG 2ML VIAL As Ordered ONE; +LIDOCAINE 2% 100MG/5ML SDV (FOR ANES.) As Ordered ONE; +METF-838 PO; +MIDAZOLAM INJ 2MG/2ML VIAL As Ordered ONE; +ONDANSETRON 4MG 2ML VIAL As Ordered ONE; +OREN1INJ SC; +PRED5TA PO; +SEMA0.257 SC; +fentaNYL 100 MCG/2 ML INJECTION As Ordered ONE; +propofoL 200 MG/20 ML VIAL As Ordered ONE
[2024-02-20] MEDS ORDERED: LR 1,000 ML IV SCH (14:00)
[2024-02-20] MEDS ORDERED: fentaNYL 100 MCG/2 ML INJECTION IV PRN (14:00)
[2024-02-20] MEDS ORDERED: HYDROMORPHONE HCL 0.5 MG/ 0.5 ML SYRINGE IV PRN (14:00)
[2024-02-20] MEDS: oxyCODONE 5MG TAB PO PRN (14:17)
[2024-02-20] MEDS: ONDANSETRON 4MG 2ML VIAL IV PRN (14:17)
[2024-02-20 15:05] VITALS: BP 143/72; TEMP 98; O2SAT 96
== END 2024-02-20 15:25 | disposition home or self-care (01) ==
LOC: M SDC 10:23
PROVIDERS: ATTEND Orthopaedic Surgery Hand Surgery
DX: G56.01 Carpal tunnel syndrome, right upper limb (principal); E11.9 Type 2 diabetes mellitus without complications; G47.30 Sleep apnea, unspecified; M06.9 Rheumatoid arthritis, unspecified; E78.00 Pure hypercholesterolemia, unspecified; F32.A Depression, unspecified; M54.9 Dorsalgia, unspecified; J45.909 Unspecified asthma, uncomplicated; G43.909 Migraine, unspecified, not intractable, without status migrainosus; F17.210 Nicotine dependence, cigarettes, uncomplicated; Z88.6 Allergy status to analgesic agent; Z88.8 Allergy status to other drugs, medicaments and biological substances; Z79.899 Other long term (current) drug therapy; Z79.84 Long term (current) use of oral hypoglycemic drugs; Z79.85 Long-term (current) use of injectable non-insulin antidiabetic drugs
CPT/HCPCS: 29848; J0665; J1100; J1885; J2250; J2405; J3010

== ENCOUNTER → 2024-08-14 | Outpatient (REF) | payer BC ==
[~2024-08-14] MED LIST changes: -DOXY-323 PO; +DOXY-441 PO; -KETOROLAC 60MG 2ML VIAL As Ordered ONE; -LIDOCAINE 2% 100MG/5ML SDV (FOR ANES.) As Ordered ONE; -MIDAZOLAM INJ 2MG/2ML VIAL As Ordered ONE; -ONDANSETRON 4MG 2ML VIAL As Ordered ONE; -fentaNYL 100 MCG/2 ML INJECTION As Ordered ONE; -propofoL 200 MG/20 ML VIAL As Ordered ONE
[2024-08-14 18:20] LABS: BASO % 0.3 % (0.0-1.0); EOS # 0.1 10^3/uL (0.0-0.5); EOS % 0.6 % (0.0-3.0); HEMATOCRIT 38.8 % (36.0-47.0); LYMPH # 3.8 10^3/uL (1.5-5.0); LYMPH % 40.5 % (24.0-44.0); MEAN CORPUSCULAR HEMOGLOBIN 28.6 pg (27.0-33.0); MEAN CORPUSCULAR HGB CONC 33.5 g/dl (32.0-36.5); MEAN CORPUSCULAR VOLUME 85.3 fl (80.0-96.0); MONO # 0.5 10^3/uL (0.0-0.8); MONO % 5.8 % (2.0-8.0); NEUTROPHILS # 4.9 10^3/uL (1.5-8.5); NEUTROPHILS % 52.6 % (36.0-66.0); PLATELET COUNT, AUTOMATED 179 10^3/uL (150-450); RED BLOOD COUNT 4.55 10^6/uL (4.00-5.40); WHITE BLOOD COUNT 9.3 10^3/uL (4.0-10.0)
[2024-08-14 18:36] LABS: HEMOGLOBIN A1c 5.2 % (4.0-6.0)
[2024-08-14 18:42] LABS: ALKALINE PHOSPHATASE 79 U/L (35-104); ALT/SGPT 25 U/L (7.0-40); AST/SGOT 26 U/L (<34); BILIRUBIN,TOTAL 0.5 MG/DL (0.3-1.2); BLOOD UREA NITROGEN 5 MG/DL (9-23); CALCIUM LEVEL 9.6 MG/DL (8.5-10.1); CARBON DIOXIDE LEVEL 30 MMOL/L (20-31); CHLORIDE LEVEL 107 MMOL/L (98-107); CHOLESTEROL LEVEL 148 MG/DL (<200); CHOLESTEROL RISK RATIO 2.68 (<5); CREATININE FOR GFR 0.79 MG/DL (0.55-1.30); GLOMERULAR FILTRATION RATE > 60.0 (>51); GLUCOSE, FASTING 85 MG/DL (60-100); HDL CHOLESTEROL 55.2 MG/DL (>40); IRON (FE) 70 UG/DL (50-170); LDL CHOLESTEROL 66.2 MG/DL (<100); NON-HDL-C 92.8 MG/DL; PERCENT SATURATION 19.4 % (13.2-45.0); POTASSIUM SERUM 4.1 MMOL/L (3.5-5.1); SODIUM LEVEL 143 MMOL/L (136-145); TOTAL IRON BINDING CAPACITY 361 UG/DL (250-425); TOTAL PROTEIN 6.9 G/DL (5.7-8.2); TRIGLYCERIDES LEVEL 133 MG/DL (<150)
[2024-08-14 18:46] LABS: THYROID STIMULATING HORMONE 1.284 uIU/ML (0.55-4.78)
[2024-08-14 18:47] LABS: FERRITIN 23.6 NG/ML (7.3-270.7); FREE T4 0.96 NG/DL (0.89-1.76); TOTAL 25(OH) VITAMIN D 24.5 NG/ML (20.0-100.0)
[2024-08-14 18:48] LABS: VITAMIN B12 LEVEL 845 PG/ML (211-911)
== END ==
LOC: M SFHCADAM 14:58
PROVIDERS: ATTEND Physician Assistant Medical
DX: E11.65 Type 2 diabetes mellitus with hyperglycemia (principal); E55.9 Vitamin D deficiency, unspecified; D50.8 Other iron deficiency anemias; E78.2 Mixed hyperlipidemia

== ENCOUNTER → 2024-08-17 | Outpatient (CLI) | payer BC | LOC: M RAD 09:55 | PROVIDERS: ATTEND Physician Assistant Medical | DX: Z12.2 Encounter for screening for malignant neoplasm of respiratory organs (principal); F17.210 Nicotine dependence, cigarettes, uncomplicated ==

== ENCOUNTER → 2024-10-05 | Outpatient (CLI) | payer BC | LOC: M RAD 07:30 | PROVIDERS: ATTEND Physician Assistant Medical | DX: K75.81 Nonalcoholic steatohepatitis (NASH) (principal) ==

== ENCOUNTER → 2025-02-12 | Outpatient (REF) | payer BC ==
[~2025-02-12] MED LIST changes: +TOPI-14 PO; -TOPI200T7 PO
[2025-02-12 17:51] LABS: BASO % 0.5 % (0.0-1.0); EOS # 0.1 10^3/uL (0.0-0.5); EOS % 1.1 % (0.0-3.0); HEMATOCRIT 42.1 % (36.0-47.0); HEMOGLOBIN 13.7 g/dl (12.0-15.5); LYMPH # 3.2 10^3/uL (1.5-5.0); LYMPH % 35.7 % (24.0-44.0); MEAN CORPUSCULAR HEMOGLOBIN 28.8 pg (27.0-33.0); MEAN CORPUSCULAR HGB CONC 32.5 g/dl (32.0-36.5); MEAN CORPUSCULAR VOLUME 88.6 fl (80.0-96.0); MONO # 0.6 10^3/uL (0.0-0.8); MONO % 6.9 % (2.0-8.0); NEUTROPHILS # 4.9 10^3/uL (1.5-8.5); NEUTROPHILS % 55.6 % (36.0-66.0); PLATELET COUNT, AUTOMATED 210 10^3/uL (150-450); RED BLOOD COUNT 4.75 10^6/uL (4.00-5.40); WHITE BLOOD COUNT 8.9 10^3/uL (4.0-10.0)
[2025-02-12 18:15] LABS: ALBUMIN 4.1 G/DL (3.2-5.2); ALKALINE PHOSPHATASE 87 U/L (35-104); ALT/SGPT 29 U/L (7.0-40); AST/SGOT 25 U/L (<34); BILIRUBIN,TOTAL 0.5 MG/DL (0.3-1.2); BLOOD UREA NITROGEN 8 MG/DL (9-23); CALCIUM LEVEL 9.3 MG/DL (8.5-10.1); CARBON DIOXIDE LEVEL 30 MMOL/L (20-31); CHLORIDE LEVEL 104 MMOL/L (98-107); CHOLESTEROL LEVEL 172 MG/DL (<200); CHOLESTEROL RISK RATIO 2.76 (<5); CREATININE FOR GFR 0.69 MG/DL (0.55-1.30); GLOMERULAR FILTRATION RATE > 90.0 (>51); GLUCOSE, FASTING 95 MG/DL (60-100); HDL CHOLESTEROL 62.2 MG/DL (>40); LDL CHOLESTEROL 81.4 MG/DL (<100); NON-HDL-C 109.8 MG/DL; POTASSIUM SERUM 4.1 MMOL/L (3.5-5.1); SODIUM LEVEL 142 MMOL/L (136-145); TOTAL PROTEIN 6.9 G/DL (5.7-8.2); TRIGLYCERIDES LEVEL 142 MG/DL (<150)
[2025-02-12 18:16] LABS: THYROID STIMULATING HORMONE 1.022 uIU/ML (0.55-4.78)
[2025-02-12 18:17] LABS: FREE T4 1.03 NG/DL (0.89-1.76); TOTAL 25(OH) VITAMIN D 35.4 NG/ML (20.0-100.0)
== END ==
LOC: M SFHCADAM 12:56
PROVIDERS: ATTEND Physician Assistant Medical
DX: E11.65 Type 2 diabetes mellitus with hyperglycemia (principal); I10 Essential (primary) hypertension; E55.9 Vitamin D deficiency, unspecified; D50.8 Other iron deficiency anemias; K75.81 Nonalcoholic steatohepatitis (NASH)

== ENCOUNTER → 2025-06-06 | Outpatient (CLI) | payer BC | LOC: M WUC 15:10 | PROVIDERS: ATTEND Student in an Organized Health Care Education/Training Program | DX: M79.671 Pain in right foot (principal) ==

== ENCOUNTER → 2025-08-22 | Outpatient (REF) | payer BC ==
[2025-08-22 17:23] LABS: ALT/SGPT 23 U/L (7.0-40); AST/SGOT 27 U/L (<34); CALCIUM LEVEL 9.2 MG/DL (8.5-10.1); CARBON DIOXIDE LEVEL 31 MMOL/L (20-31); CHLORIDE LEVEL 105 MMOL/L (98-107); CHOLESTEROL LEVEL 176 MG/DL (<200); CHOLESTEROL RISK RATIO 3.14 (<5); CREATININE FOR GFR 0.73 MG/DL (0.55-1.30); GLOMERULAR FILTRATION RATE > 90.0 (>51); IRON (FE) 51 UG/DL (50-170); LDL CHOLESTEROL 87.7 MG/DL (<100); NON-HDL-C 120.1 MG/DL; PERCENT SATURATION 14.7 % (13.2-45.0); POTASSIUM SERUM 4.7 MMOL/L (3.5-5.1); SODIUM LEVEL 142 MMOL/L (136-145); TRIGLYCERIDES LEVEL 162 MG/DL (<150)
[2025-08-22 17:24] LABS: FREE T4 1.06 NG/DL (0.89-1.76)
[2025-08-22 17:26] LABS: BASO # 0.1 10^3/uL (0.0-0.2); BASO % 0.6 % (0.0-1.0); EOS # 0.3 10^3/uL (0.0-0.5); EOS % 3.0 % (0.0-3.0); LYMPH # 2.9 10^3/uL (1.5-5.0); LYMPH % 35.2 % (24.0-44.0); MONO # 0.6 10^3/uL (0.0-0.8); MONO % 7.2 % (2.0-8.0); NEUTROPHILS # 4.4 10^3/uL (1.5-8.5); NEUTROPHILS % 53.9 % (36.0-66.0); PLATELET COUNT, AUTOMATED 204 10^3/uL (150-450); TOTAL 25(OH) VITAMIN D 35.0 NG/ML (20.0-100.0); VITAMIN B12 LEVEL 523 PG/ML (211-911)
[2025-08-22 17:47] LABS: ESTIMATED AVERAGE GLUCOSE 114.0 MG/DL (60-110)
[2025-08-22 17:50] LABS: CREATININE, URINE 37.9 MG/DL; MALB URINE SIEMENS < 3.0 MG/L
== END ==
LOC: M SFHCADAM 11:48
PROVIDERS: ATTEND Physician Assistant Medical
DX: Z23 Encounter for immunization (principal); E11.65 Type 2 diabetes mellitus with hyperglycemia; I10 Essential (primary) hypertension; E55.9 Vitamin D deficiency, unspecified; E66.01 Morbid (severe) obesity due to excess calories; D50.8 Other iron deficiency anemias

== ENCOUNTER → 2025-08-22 | Outpatient (CLI) | payer BC | LOC: M ADAMS 11:50 | PROVIDERS: ATTEND Physician Assistant Medical | DX: M25.512 Pain in left shoulder (principal) ==

== ENCOUNTER → 2025-09-24 | Outpatient (CLI) | payer BC ==
[~2025-09-24] MED LIST changes: -BACTDSTA; +SULF-8
== END ==
LOC: M RAD 07:04
PROVIDERS: ATTEND Physician Assistant Medical
DX: Z12.2 Encounter for screening for malignant neoplasm of respiratory organs (principal); F17.210 Nicotine dependence, cigarettes, uncomplicated; J84.10 Pulmonary fibrosis, unspecified; I70.0 Atherosclerosis of aorta